=== PATIENT | male | born 1995 | race Asian ===

== ENCOUNTER 2020-06-10 07:20 | Outpatient (REF) | payer BC, SELFPAY ==
[2020-06-10 08:16] LABS: COVID-19 Test Negative (Negative)
== END 2020-06-10 07:21 | disposition home or self-care (01) ==
LOC: HO.LAB 07:20
PROVIDERS: Visit Provider Internal Medicine
DX: Z20.828 Contact with and (suspected) exposure to other viral communicable diseases (principal)
CPT/HCPCS: 87635; C9803

== ENCOUNTER 2023-08-30 13:46 | Inpatient (IN) | payer OTHER, SELFPAY ==
[2023-08-30] VITALS (8 sets, daily range): BP systolic 112–122; BP diastolic 57–74; PULSE 80–130; RESP 15–36; TEMP 36.6–37; O2SAT 98–100; BMI 28.5
--- NOTE | ~2023-08-30 | CT_ITS ---
EXAMINATION: CT ABDOMEN AND PELVIS without and WITH CONTRAST-GI bleed study CLINICAL INFORMATION: Acute GI bleed and melena COMPARISON: None TECHNIQUE: Multidetector volumetric imaging was performed from the superior aspect of the liver through the pubic symphysis both before as well as after intravenous contrast. A total of 85 mL of Omnipaque 350 was utilized for the study. 2 sets of post contrast imaging were performed, one during the arterial phase and one after a 2 minute delay to look for delayed extravasation. Sagittal and coronal reformatted images were obtained on the technologist's workstation. This CT examination was performed using dose optimization techniques as appropriate, variously including the following: *Automated exposure control *Adjustment of mA and/or kV according to patient size (this includes techniques or standardized protocols for targeted exams where dose is matched to indication/reason for exam; i.e. extremities or head) *Use of iterative reconstruction technique DLP: 910 mGy-cm FINDINGS: LUNG BASES: The visualized lung bases are unremarkable. LIVER, GALLBLADDER, AND BILIARY TREE: The liver is enlarged measuring 17.8 cm in greatest cephalocaudad dimension but is otherwise normal in shape and attenuation. No focal hepatic lesion or biliary ductal dilatation is present. The gallbladder is unremarkable with no evidence of radiopaque gallstones, gallbladder wall thickening, or obvious pericholecystic inflammatory changes. PANCREAS: Unremarkable. SPLEEN: Unremarkable. ADRENAL GLANDS: Unremarkable. KIDNEYS AND URETERS: The kidneys are normal in size, shape, and attenuation. No hydronephrosis, hydroureter, or calculi seen. No perinephric stranding. BLADDER: Unremarkable. GASTROINTESTINAL TRACT: The small and large bowel are unremarkable. The appendix is unremarkable. ABDOMINAL WALL: No significant hernia is appreciated. LYMPH NODES: Normal. VASCULAR: Unremarkable. PELVIC VISCERA: Unremarkable. OSSEOUS STRUCTURES: Unremarkable. CT/CT gi bleed abd pel wo/w IVcon IMPRESSION: 1. A cause for the patient's acute GI bleed has not been found. 2. Incidental note made of mild hepatomegaly. Fleischner guidelines were followed.
--- NOTE | 2023-08-30 13:49 | ECG_ITS ---
Test Reason : CHEST PAIN Blood Pressure : / mmHG Vent. Rate : 117 BPM Atrial Rate : 117 BPM P-R Int : 142 ms QRS Dur : 080 ms QT Int : 312 ms P-R-T Axes : 055 075 040 degrees QTc Int : 435 ms Sinus tachycardia Otherwise normal ECG No previous ECGs available Referred By: Generic ED Physician Electronically Signed By:SRINATH GALVEZ MD
--- NOTE | 2023-08-30 14:22 | ED_ITS ---
HPI - Chest Pain General Chief Complaint: GI Bleed Stated Complaint: Chest pain/SOB/Black stool Time Seen by Provider: 08/30/23 16:50 Source: patient Mode of arrival: ambulatory History of Present Illness HPI narrative: 28-year-old male without personal history of NSAID/aspirin use, alcohol use 2 weeks ago, no family history of GI cancers, presents for 2-3 days melena that is painless and then this morning has had several episodes with feeling nauseous, lightheaded as well as short of breath. Related Data Allergies Allergy/AdvReac Type Severity Reaction Status Date / Time cefaclor [From Ceclor] Allergy Unknown Verified 08/30/23 14:22 Review of Systems 2 Review of Systems: Pertinent positives and negatives as stated in HPI PMFSH Past Medical History Source: nursing notes reviewed Social History Social History Smoked in Last 30 Days: No Use of substances other than those prescribed or required for medical reasons: No Advance Directives: No Advance Directives Information Provided: No Physical Exam 2 Vital Signs: Vital Signs: Last Vital Signs Temp 98.6 F 08/30/23 17:50 Pulse 100 08/30/23 17:50 Resp 36 H 08/30/23 17:50 BP 117/72 08/30/23 17:50 Pulse Ox 100 08/30/23 17:50 O2 Del Method Room Air 08/30/23 17:50 BMI result Body Mass Index 28.5 VITAL SIGNS: Reviewed. GENERAL: Well developed, well nourished, in no acute distress. HEAD: Normocephalic/atraumatic EYES: PERRLA, EOMI EARS: Ext canals without abnormality NOSE: Nares patent bilateral OROPHARYNX: no oral lesions noted, posterior pharynx clear NECK: Supple, no adenopathy LUNGS: Normal breath sounds. No adventitious sounds or accessory muscle use. SpO2<100> CARDIOVASCULAR: Regular rate and rhythm without noted murmurs ABDOMEN: Soft, non-tender, non-distended with bowel sounds. ANORECTAL: [Schedule Manager-Tiana] no skin tags, good rectal tone, dark stool noted on finger MUSCULOSKELETAL: No tenderness, deformities, or effusions noted on gross inspection. EXTREMITIES: No cyanosis, clubbing or edema. SKIN: Inspection of the skin reveals no rashes, pale mucosa NEUROLOGIC: Alert and oriented x 4. Strength and sensation to light touch were grossly intact x 4. Course Course Course Narrative: RME: 28 year-old M w/no sig PMHx presenting to the ED c/o SOB & black stool x3 days, with palpitations this morning & upper abdominal pain. Admits to feeling lightheaded & some chest pain. Admits to drinking ETOH, denies NSAID tachycardic 120 in triage, pale EKG, Labs, Viral testing, UA, Occult stool ordered Full HPI, ROS and PE to be performed by primary ED provider. Medications Administered Discontinued Medications Generic Name Dose Route Start Last Admin Trade Name Freq PRN Reason Stop Dose Admin Sodium Chloride 1,000 mls @ 999 mls/hr 08/30/23 17:00 08/30/23 19:03 Ns IV 08/30/23 18:00 Infused .Q1H1M GUNJAN Infusion Iohexol 85 ml 08/30/23 17:33 08/30/23 17:33 Iohexol 350 Mg/Ml 100 Ml Infus..Btl IV 08/30/23 17:34 85 ml ONCE ONE Administration Pantoprazole Sodium 80 mg 08/30/23 17:00 08/30/23 17:14 Pantoprazole Sodium 40 Mg/10 Ml Vial IVPUSH 08/30/23 17:01 80 mg ONCE ONE Administration Medical Decision Making Medical Decision Making [facility] Narrative: 28-year-old male with history and clinical presentation, DDX: Upper GI bleed, bleeding ulcer, no hematemesis but obvious melena, patient is symptomatic. INTERVENTION: IV access, cardiac monitoring, 80 mg Protonix, IV fluids, type and screen, CT for GI bleed I reviewed all investigations and hematologic indices are negative for leukocytosis or left shift, there is no thrombocytopenia but there is a noted normocytic anemia without comparison labs but given patient's symptoms in recent melena can only presume that the anemia is secondary to the recent bouts of melena that he continues to have into today. Coagulation studies are within normal limits. Chemistries disease do not demonstrate an JULIA/electrolyte/liver enzyme derangements. I sensitivity troponin undetectable. Urinalysis negative for UTI and hematuria. Hemoccult is positive. Viral testing negative for influenza/RSV/COVID. CT scan does not demonstrate any acute extravasation. On re-evaluation patient states that he is feeling somewhat better. 1911: I discussed case with inpatient hospitalist who accepts admission. 1925: I consulted with Dr. Koch. Differential Diagnosis Differential Diagnoses: The differential diagnosis associated with the presentation includes Please see the discussion above Admission/Observation Consideration of admission/observation: Escalation of care including admission/observation considered Please see the discussion above Consult Healthcare Provider Management of the patient was discussed with: Hospitalist and [employer]nament[employer]er Please see the discussion above Lab Data MDM Lab Attestation statement: I reviewed the patient's lab results. Please see the discussion above 08/30/23 15:33 08/30/23 15:33 Labs: Lab Results 08/30/23 08/30/23 08/30/23 Range/Units 15:33 17:05 17:10 WBC 10.7 (4.8-10.8) X10*3/uL RBC 4.52 L D (4.60-5.80) X10*6/uL Hgb 12.7 L (14.0-18.0) g/dl Hct 38.2 L (42.0-52.0) % MCV 84.5 (80.0-98.0) fL MCH 28.1 (27.0-33.0) pg MCHC 33.2 (31.0-36.0) g/dl RDW 12.8 (11.0-16.0) % Plt Count 390 (160-400) X10*3/uL MPV 9.7 (9.4-12.4) fL Immature Gran % (Auto) 0.8 H (0.0-0.4) % Neut % (Auto) 71.1 (45-73) % Lymph % (Auto) 21.1 (20-40) % [place] % (Auto) 6.1 (2-11) % Eos % (Auto) 0.4 (0-4) % Baso % (Auto) 0.5 (0-2) % Lymph # (Auto) 2.3 (1.2-4.9) X10*3/uL [place] # (Auto) 0.7 (0.1-1.2) X10*3/uL Eos # (Auto) 0.0 (0.0-0.4) X10*3/uL Baso # (Auto) 0.1 (0.0-0.2) X10*3/uL Abs Immat Gran (auto) 0.09 H (0.00-0.03) X10*3/uL Absolute Neuts (auto) 7.6 (2.0-8.3) x10*3/uL Absolute Nucleated RBC 0.000 (0.0-0.012) X10*3/uL Nucleated RBC % (auto) 0.0 (0.0-0.2) /100WBC PT 12.0 (11.1-13.3) SEC INR 1.0 (0.9-1.1) Sodium 136 (135-145) mmol/L Potassium 4.5 (3.3-5.1) mmol/L Chloride 104 (96-108) mmol/L Carbon Dioxide 26 (22-29) mmol/L Anion Gap 11 L (12-20) BUN 49 H (9-16) mg/dL Creatinine 0.99 (0.5-1.4) mg/dL Estim Creat Clear Calc 113.2 Estimated GFR > 60 Random Glucose 99 (60-115) mg/dL Calcium 8.8 D (8.4-10.2) mg/dL Magnesium 2.0 (1.6-2.6) mg/dL Total Bilirubin 0.5 (0.0-1.0) mg/dL Direct Bilirubin 0.2 (0.0-0.5) mg/dL AST 21 (5-37) U/L ALT 15 (0-40) U/L Alkaline Phosphatase 60 (39-117) U/L Troponin I High Sens < 2.7 (<3.5-35.0) ng/L Total Protein 6.7 (6.5-8.0) g/dL Albumin 3.8 (3.5-5.0) g/dL Lipase 34 (8-78) U/L Urine Color Yellow Urine Appearance Clear Urine pH 5.5 (5.0-9.0) Ur Specific [place] 1.025 (1.005-1.025) Urine Protein Negative (Neg-Trace) mg/dL Urine Glucose (UA) Negative (Negative) mg/dL Urine Ketones Negative (Negative) mg/dL Urine Blood Negative (Negative) Urine Nitrite Negative (Negative) Ur Leukocyte Esterase Negative (Negative) Stool Occult Blood POSITIVE (NEGATIVE) Influenza Type A (PCR) NEGATIVE (Negative) Influenza Type B (PCR) NEGATIVE (Negative) RSV RNA Qual (PCR) NEGATIVE (Negative) SARS-CoV-2 RNA (RT-PCR) NEGATIVE (Negative) Blood Type B Positive Antibody Screen NEGATIVE Independent Interpretation I performed an independent interpretation of an: EKG Interpretation: Sinus tachycardia, HR-117, no STEMI, IA/QRS/QTC is within normal limits. Radiology Impression Discussion of test interpretation with radiology: I have reviewed the radiologist's reading. Radiologist Impression: Please see the discussion above Critical Care Time Critical Care Time Critical Care Time: Yes Total Critical Care Time: 60 Attestation: I personally attest to this time spent taking care of the patient. Discharge Plan Discharge Clinical Impression: Upper gastrointestinal hemorrhage, ABLA (acute blood loss anemia) Patient Disposition: Admitted As Inpatient
[2023-08-30 15:37] LABS: MANUAL DIFF FLAG NO
[2023-08-30 15:39] LABS: Basophils Absolute Auto 0.1 X10*3/uL (0.0-0.2); Basophils Percent Auto 0.5 % (0-2); Eosinophils Percent Auto 0.4 % (0-4); Hematocrit 38.2 % (42.0-52.0); Hemoglobin 12.7 g/dl (14.0-18.0); Imm Gran Abs Auto 0.09 X10*3/uL (0.00-0.03); Imm Gran Pct Auto 0.8 % (0.0-0.4); Lymphocytes Absolute Auto 2.3 X10*3/uL (1.2-4.9); Lymphocytes Percent Auto 21.1 % (20-40); Mean Corpuscular HGB Conc 33.2 g/dl (31.0-36.0); Mean Corpuscular Hemoglobin 28.1 pg (27.0-33.0); Mean Corpuscular Volume 84.5 fL (80.0-98.0); Mean Platelet Volume 9.7 fL (9.4-12.4); Monocytes Absolute Auto 0.7 X10*3/uL (0.1-1.2); Monocytes Percent Auto 6.1 % (2-11); Neutrophils Absolute Auto 7.6 x10*3/uL (2.0-8.3); Neutrophils Percent Auto 71.1 % (45-73); Platelet Count 390 X10*3/uL (160-400); Red Blood Count 4.52 X10*6/uL (4.60-5.80); Red Cell Distribution Width 12.8 % (11.0-16.0); White Blood Count 10.7 X10*3/uL (4.8-10.8)
[2023-08-30 15:52] LABS: Alanine Aminotransferase 15 U/L (0-40); Albumin Level 3.8 g/dL (3.5-5.0); Alkaline Phosphatase 60 U/L (39-117); Anion Gap 11 (12-20); Aspartate Amino Transferase 21 U/L (5-37); Bilirubin Direct 0.2 mg/dL (0.0-0.5); Bilirubin Total 0.5 mg/dL (0.0-1.0); Blood Urea Nitrogen 49 mg/dL (9-16); Calcium 8.8 mg/dL (8.4-10.2); Carbon Dioxide 26 mmol/L (22-29); Chloride 104 mmol/L (96-108); Creatinine Clr Calc Pharmacy 113.2; Estimated Glomerular Filt Rate > 60; Glucose Random 99 mg/dL (60-115); Lipase 34 U/L (8-78); Potassium 4.5 mmol/L (3.3-5.1); Sodium 136 mmol/L (135-145); Total Protein 6.7 g/dL (6.5-8.0)
[2023-08-30 16:02] LABS: Troponin-I High Sensitivity < 2.7 ng/L (<3.5-35.0)
[2023-08-30 16:15] LABS: Influenza A PCR NEGATIVE (Negative); Influenza B PCR NEGATIVE (Negative); Resp Syncy Virus RNA Qual PCR NEGATIVE (Negative); SARS COV2 PCR INHOUSE NEGATIVE (Negative)
[2023-08-30] MEDS: 0.9 % Sodium Chloride 1,000 ML 999 ML IV (17:10)
[2023-08-30] MEDS: Pantoprazole Sodium 40 MG/10 ML VIAL 80 MG IVPUSH (17:14)
[2023-08-30 17:19] LABS: OBS Int Ctl Valid YES; OBS1 POSITIVE (NEGATIVE)
[2023-08-30 17:20] LABS: Appearance Urine Clear; Color Urine Yellow; Glucose Urine UA Negative (Negative); Leukocyte Esterase Urine Negative (Negative); Nitrite Urine Negative (Negative); PH 5.5 (5.0-9.0); Specific Gravity - Urine 1.025 (1.005-1.025); Urine Blood Negative (Negative); Urine Ketones Negative (Negative); Urine Protein Negative (Neg-Trace)
--- NOTE | 2023-08-30 17:23 | PC.NURSE ---
IV placed in the patients right lateral AC #20, patient placed on tele monitor NS, patient medicated per MAR. patient remains alert and oriented x 3
[2023-08-30] MEDS: iohexoL 350 MG/ML 100 ML INFUS..BTL 85 ML IV (17:33)
--- NOTE | 2023-08-30 19:29 | P.HPHOSP_ITS ---
History of Present Illness Date of Service: 08/30/23 Chief Complaint: Uriel A 28-year-old male with no significant past medical history presents with melena. He reports experiencing episodes of black stools for the past 3 days, with symptoms worsening today accompanied by abdominal discomfort, dizziness, shortness of breath, and nausea. He denies using ASA, NSAIDs, steroids, or recent alcohol consumption, with his last drink being 2 weeks ago. His initial hematocrit is 38, repat 4 hours later 33. He was slightly tachycardic, but has improved since then. No family history of GI issues such as crohn's , IBS or colon malignancies . Review of Systems 2 Review of Systems: Gen: no fever Resp: + sob, no cough CV: no chest, no BRINK, no leg edema GI: melana, abd pain, nausea Neuro: No confusion Yes all other systems are reviewed and are negative PMFSH Pertinent family history: No family history of GI issues Social History Patient Tobacco Use Status: Never used Tobacco Smoked in Last 30 Days: No Use of substances other than those prescribed or required for medical reasons: No Advance Directives: No Advance Directives Information Provided: No Nutrition Risks: No Nutritional Risk Meds Allergies Allergy/AdvReac Type Severity Reaction Status Date / Time cefaclor [From [facility]] Allergy Unknown Verified 08/30/23 14:22 Home Medications Medication Instructions Recorded Confirmed Last Taken Type loratadine 5 mg-pseudoephedrine ER 1 tab PO Q12H PRN Allergy Symptoms 08/31/23 08/31/23 Unknown History 120 mg tablet,extended release,12hr (Claritin-D 12 Hour) Physical Exam 2 Vital Signs and Narrative: Vital Signs: Last Vital Signs Temp 98.6 F 08/30/23 17:50 Pulse 100 08/30/23 17:50 Resp 36 H 08/30/23 17:50 BP 117/72 08/30/23 17:50 Pulse Ox 100 08/30/23 17:50 O2 Del Method Room Air 08/30/23 17:50 BMI result Body Mass Index 28.5 Constitutional: Alert, in no distress, overweight. Mental Status: Oriented to person, place and time. Eyes: Pupils are equal, round and reactive to light. Ear, Nose and Throat: Oropharynx clear, mucous membranes moist. Respiratory: Clear to auscultation. No wheezing, rales or rhonchi. Cardiovascular: S1 S2 regular. No murmurs, rubs or gallops. Gastrointestinal: Abdomen soft, non-tender, non-distended. Normal bowel sounds.?rectal exam deffered Neurologic: Cranial nerves II-XII grossly intact. No focal neurological deficits. Moves all extremities spontaneously.? Skin: No rashes or lesions.? Musculoskeletal: No cyanosis or clubbing. Psychiatric: Normal mood and affect? Results Labs 08/31/23 04:29 08/30/23 15:33 Labs: Laboratory Results - last 24 hr 08/30/23 08/30/23 08/30/23 15:33 17:05 17:10 MCV 84.5 MCH 28.1 MCHC 33.2 RDW 12.8 Plt Count 390 MPV 9.7 Immature Gran % (Auto) 0.8 H Neut % (Auto) 71.1 Lymph % (Auto) 21.1 [place] % (Auto) 6.1 Eos % (Auto) 0.4 Baso % (Auto) 0.5 Lymph # (Auto) 2.3 [place] # (Auto) 0.7 Eos # (Auto) 0.0 Baso # (Auto) 0.1 Abs Immat Gran (auto) 0.09 H Absolute Neuts (auto) 7.6 Absolute Nucleated RBC 0.000 Nucleated RBC % (auto) 0.0 PT 12.0 INR 1.0 Anion Gap 11 L Estim Creat Clear Calc 113.2 Estimated GFR > 60 Random Glucose 99 Calcium 8.8 D Magnesium 2.0 Total Bilirubin 0.5 Direct Bilirubin 0.2 AST 21 ALT 15 Alkaline Phosphatase 60 Troponin I High Sens < 2.7 Total Protein 6.7 Albumin 3.8 Lipase 34 Urine Color Yellow Urine Appearance Clear Urine pH 5.5 Ur Specific [place] 1.025 Urine Protein Negative Urine Glucose (UA) Negative Urine Ketones Negative Urine Blood Negative Urine Nitrite Negative Ur Leukocyte Esterase Negative Stool Occult Blood POSITIVE Influenza Type A (PCR) NEGATIVE Influenza Type B (PCR) NEGATIVE RSV RNA Qual (PCR) NEGATIVE SARS-CoV-2 RNA (RT-PCR) NEGATIVE Blood Type B Positive Antibody Screen NEGATIVE Imaging Radiologist's Impressions: Impressions Abdomen/Pelvis CT 08/30/23 17:57 IMPRESSION: 1. A cause for the patient's acute GI bleed has not been found. 2. Incidental note made of mild hepatomegaly. Fleischner guidelines were followed. Assessment and Plan (1) ABLA (acute blood loss anemia): Status: Acute (2) Upper gastrointestinal hemorrhage: Status: Acute Plan A 28-year-old male with no significant past medical history presents with melena (GIB), and acute blood loss anemia ( ABLA), inital hematocrit 38 repeat 4 hours 33 Plan: GIB, ABLA -Serial H/H -IVF -IV PPI -Dr. Koch aware -NPO for possible endocopy tomoorw DVT prophylaxis: early ambulation Full code admit for at least 2 midnights for management of symptomatic ABLA and need for for further testing Quality Stroke Does the patient have a stroke diagnosis?: No VTE Prior VTE?: No VTE Risk Level:: Medical - low VTE Device Contraindication: Treatment Not Indicated VTE Drug Contraindication: Treatment Not Indicated
--- NOTE | 2023-08-30 19:42 | PM.EVENT ---
Event Note Date of Service: 08/30/23 Event Note: GI consult received, case reviewed with ER MD. EGD tentatively planned for 08/31 pending clinical course and formal evaluation. Time Spent With Patient Time: Total time managing care of this patient today ____ minutes.
[2023-08-30 19:49] LABS: Hematocrit 33.7 % (42.0-52.0); Hemoglobin 11.3 g/dl (14.0-18.0)
--- NOTE | 2023-08-30 20:09 | PC.NURSE ---
28 yr presents with melena x 3 days with abd pain , SOB, nausea. Denies ASA or recent alcohol use ( last use 2 weeks ago). neg smoker. Positive occult blood NPO for possible endoscopy tomorrow. IVF, serial H/H
--- NOTE | 2023-08-30 20:28 | PC.NURSE ---
[facility] TO [place] - [phone]
[2023-08-30] MEDS: Dextrose 5 % and 0.45 % NaCl 1,000 ML 100 ML IVCONT (20:38)
--- NOTE | 2023-08-30 23:42 | MHC.EDTECH ---
This tech took over care of patient at 2300,hourly rounds and vitals completed.patient is resting comfortably at this time and call rubio in reach
[2023-08-31] VITALS (7 sets, daily range): BP systolic 100–117; BP diastolic 49–72; PULSE 77–101; RESP 16; TEMP 36.3–36.8; O2SAT 97–100
--- NOTE | 2023-08-31 01:10 | MHC.EDTECH ---
Patient ambulated to the bathroom with a steady gait.
[2023-08-31 01:11] LABS: Hematocrit 32.6 % (42.0-52.0)
--- NOTE | 2023-08-31 01:50 | MHC.EDTECH ---
Hourly rounds completed,patient is resting comfortable at this time and call rubio in reach
--- NOTE | 2023-08-31 03:42 | MHC.EDTECH ---
Hourly rounds and vitals completed,patient is resting comfortably at this time and call rubio within reach.
[2023-08-31 04:56] LABS: MANUAL DIFF FLAG NO
[2023-08-31 04:57] LABS: Basophils Absolute Auto 0.1 X10*3/uL (0.0-0.2); Basophils Percent Auto 0.9 % (0-2); Eosinophils Absolute Auto 0.1 X10*3/uL (0.0-0.4); Eosinophils Percent Auto 0.9 % (0-4); Hematocrit 32.3 % (42.0-52.0); Hemoglobin 10.7 g/dl (14.0-18.0); Imm Gran Abs Auto 0.05 X10*3/uL (0.00-0.03); Imm Gran Pct Auto 0.6 % (0.0-0.4); Lymphocytes Absolute Auto 3.4 X10*3/uL (1.2-4.9); Lymphocytes Percent Auto 37.8 % (20-40); Mean Corpuscular HGB Conc 33.1 g/dl (31.0-36.0); Mean Corpuscular Hemoglobin 28.3 pg (27.0-33.0); Mean Corpuscular Volume 85.4 fL (80.0-98.0); Mean Platelet Volume 9.7 fL (9.4-12.4); Monocytes Absolute Auto 0.6 X10*3/uL (0.1-1.2); Neutrophils Absolute Auto 4.8 x10*3/uL (2.0-8.3); Neutrophils Percent Auto 52.8 % (45-73); Platelet Count 329 X10*3/uL (160-400); Red Blood Count 3.78 X10*6/uL (4.60-5.80); Red Cell Distribution Width 12.6 % (11.0-16.0)
[2023-08-31] MEDS: Pantoprazole Sodium 40 MG/10 ML VIAL IVPUSH (05:42)
--- NOTE | 2023-08-31 07:13 | PC.NURSE ---
assumed care of pt at 0700. pt a&o x4, pleasant, calm, and cooperative. pt denies pain lenka, resting quietly on stretcher in no apparent distress. rr even/unlabored. NPO for possible endoscopy today. pt has no comlaints lenka. call rubio within reach. plan of care ongoing.
--- NOTE | 2023-08-31 07:36 | PHA.MEDREC ---
Pharmacy Consult ? Medication Reconciliation Pharmacy has completed the medication reconciliation. Spoke with patient in the ED
--- NOTE | 2023-08-31 08:17 | HO.PM.IMPN ---
Subjective Subjective Date of Service: 08/31/23 Interval History: f/u on ABLA, GIB no further melana, H/H is stable Physical Exam Vital Signs: Vital Signs: Last Vital Signs Temp 98.1 F 08/31/23 05:42 Pulse 77 08/31/23 05:42 Resp 16 08/31/23 05:42 BP 103/62 08/31/23 05:42 Pulse Ox 97 08/31/23 05:42 O2 Del Method Room Air 08/31/23 05:42 BMI result Body Mass Index 28.5 General: AO X 3, no acute distress Resp: CTA bilateral CVS: S1,S2,RRR GI: +BS, NT, no distention Skin: No rash Neuro: motor grossly intact Psych: appropriate affect Objective Data Active Medications Acetaminophen (Acetaminophen 325 Mg Tablet) 650 mg PO Q6H PRN PRN Reason: Pain, Mild (Pain Scale 1-3) Dextrose/Sodium Chloride (D51/2ns) 1,000 mls @ 100 mls/hr IVCONT .Q10H [facility] [place] Last Admin: 08/30/23 20:38 Dose: 100 mls/hr Documented By: YE Magnesium Hydroxide (Milk Of Magnesia 30 Ml Oral.Susp) 30 ml PO DAILY PRN PRN Reason: Constipation Melatonin (Melatonin 3 Mg Tablet) 6 mg PO BEDTIME PRN PRN Reason: Insomnia Ondansetron HCl (Ondansetron Hcl 4 Mg/2 Ml Vial) 4 mg IVPUSH Q8H PRN PRN Reason: Nausea and Vomiting Pantoprazole Sodium (Pantoprazole Sodium 40 Mg/10 Ml Vial) 40 mg IVPUSH BID@0630,1630 [facility] [place] Last Admin: 08/31/23 05:42 Dose: 40 mg Documented By: YE Sodium Chloride (0.9 % Sodium Chloride Flush 3 Ml Syringe) 3 ml IVFLUSH QSHIFT [facility] [place] Last Admin: 08/31/23 08:13 Dose: Not Given Documented By: YOUNG Non-Admin Reason: IV Running Labs 08/31/23 04:29 08/30/23 15:33 Labs: Laboratory Results - last 24 hr 08/30/23 08/30/23 08/30/23 15:33 17:05 17:10 MCV 84.5 MCH 28.1 MCHC 33.2 RDW 12.8 Plt Count 390 MPV 9.7 Immature Gran % (Auto) 0.8 H Neut % (Auto) 71.1 Lymph % (Auto) 21.1 [place] % (Auto) 6.1 Eos % (Auto) 0.4 Baso % (Auto) 0.5 Lymph # (Auto) 2.3 [place] # (Auto) 0.7 Eos # (Auto) 0.0 Baso # (Auto) 0.1 Abs Immat Gran (auto) 0.09 H Absolute Neuts (auto) 7.6 Absolute Nucleated RBC 0.000 Nucleated RBC % (auto) 0.0 PT 12.0 INR 1.0 Anion Gap 11 L Estim Creat Clear Calc 113.2 Estimated GFR > 60 Random Glucose 99 Calcium 8.8 D Magnesium 2.0 Total Bilirubin 0.5 Direct Bilirubin 0.2 AST 21 ALT 15 Alkaline Phosphatase 60 Troponin I High Sens < 2.7 Total Protein 6.7 Albumin 3.8 Lipase 34 Urine Color Yellow Urine Appearance Clear Urine pH 5.5 Ur Specific [place] 1.025 Urine Protein Negative Urine Glucose (UA) Negative Urine Ketones Negative Urine Blood Negative Urine Nitrite Negative Ur Leukocyte Esterase Negative Stool Occult Blood POSITIVE Influenza Type A (PCR) NEGATIVE Influenza Type B (PCR) NEGATIVE RSV RNA Qual (PCR) NEGATIVE SARS-CoV-2 RNA (RT-PCR) NEGATIVE Blood Type B Positive Antibody Screen NEGATIVE 08/31/23 04:29 MCV 85.4 MCH 28.3 MCHC 33.1 RDW 12.6 Plt Count 329 MPV 9.7 Immature Gran % (Auto) 0.6 H Neut % (Auto) 52.8 Lymph % (Auto) 37.8 [place] % (Auto) 7.0 Eos % (Auto) 0.9 Baso % (Auto) 0.9 Lymph # (Auto) 3.4 [place] # (Auto) 0.6 Eos # (Auto) 0.1 Baso # (Auto) 0.1 Abs Immat Gran (auto) 0.05 H Absolute Neuts (auto) 4.8 Absolute Nucleated RBC 0.000 Nucleated RBC % (auto) 0.0 PT INR Anion Gap Estim Creat Clear Calc Estimated GFR Random Glucose Calcium Magnesium Total Bilirubin Direct Bilirubin AST ALT Alkaline Phosphatase Troponin I High Sens Total Protein Albumin Lipase Urine Color Urine Appearance Urine pH Ur Specific [place] Urine Protein Urine Glucose (UA) Urine Ketones Urine Blood Urine Nitrite Ur Leukocyte Esterase Stool Occult Blood Influenza Type A (PCR) Influenza Type B (PCR) RSV RNA Qual (PCR) SARS-CoV-2 RNA (RT-PCR) Blood Type Antibody Screen Assessment and Plan (1) ABLA (acute blood loss anemia): Status: Acute (2) Upper gastrointestinal hemorrhage: Status: Acute Plan A 28-year-old male with no significant past medical history presents with melena (GIB), and acute blood loss anemia ( ABLA), inital hematocrit 38 repeat 4 hours 33 Plan: GIB, ABLA..Dx gastritis, peptic ulcer, H/H stabe overnight, no further melana -To remainNPO -GI eval today for possible endoscopy -IV PPI, IVF -Dr. Koch aware DVT prophylaxis: early ambulation Full code admit for at least 2 midnights for management of symptomatic ABLA and need for for further testing Quality Stroke Does the patient have a stroke diagnosis?: No VTE Prior VTE?: No VTE Risk Level:: Medical - low VTE Device Contraindication: Treatment Not Indicated VTE Drug Contraindication: Treatment Not Indicated
--- NOTE | 2023-08-31 08:45 | MHC.SHP ---
Pre-Procedural Eval Section A - 24 Hr Update-Section A only Date of Service: 08/31/23 The patient is an INPATIENT: Yes Changes since office visit: No Cold of Flu in the past 2 weeks, No New Medical Problems, No Changes in Medication and No Patient answered all questions The patient has been examined within 24 hours of the surgical procedure. The History & Physical has been completed within 30 days and I have reviewed it.: Yes Section B - Complete if H&P > 30 days Chief Complaint: GIB, ABLA Allergies: Allergies Allergy/AdvReac Type Severity Reaction Status Date / Time cefaclor [From Ceclor] Allergy Unknown Verified 08/30/23 14:22 Plan I have reviewed the history and physical and performed a pertinent physical examination on my patient. No changes have occurred unless specified. Time Spent With Patient Time: Total time managing care of this patient today ____ minutes.
--- NOTE | 2023-08-31 08:47 | HO.ANESPROP2 ---
PMF Active Problems Active Problems: All Active Problems (Updated 08/30/23 @ 19:27 by Kayla Arcos MD) ABLA (acute blood loss anemia) (Acute) Upper gastrointestinal hemorrhage (Acute) Family History Family history of problems with anesthesia: No Surgical History History of Problems with Anesthesia: No Social History Social History Patient Tobacco Use Status: Never used Tobacco Smoked in Last 30 Days: No Use of substances other than those prescribed or required for medical reasons: No Advance Directives: No Advance Directives Information Provided: No Nutrition Risks: No Nutritional Risk Meds Allergies Allergy/AdvReac Type Severity Reaction Status Date / Time [facility] [[facility] Allergy Unknown Verified 08/30/23 14:22 Active Medications: Current Medications Acetaminophen (Acetaminophen 325 Mg Tablet) 650 mg PO Q6H PRN PRN Reason: Pain, Mild (Pain Scale 1-3) Dextrose/Sodium Chloride (D51/2ns) 1,000 mls @ 100 mls/hr IVCONT .Q10H [facility] Last Admin: 08/30/23 20:38 Dose: 100 mls/hr Magnesium Hydroxide (Milk Of Magnesia 30 Ml Oral.Susp) 30 ml PO DAILY PRN PRN Reason: Constipation Melatonin (Melatonin 3 Mg Tablet) 6 mg PO BEDTIME PRN PRN Reason: Insomnia Ondansetron HCl (Ondansetron Hcl 4 Mg/2 Ml Vial) 4 mg IVPUSH Q8H PRN PRN Reason: Nausea and Vomiting Pantoprazole Sodium (Pantoprazole Sodium 40 Mg/10 Ml Vial) 40 mg IVPUSH BID@0630,1630 [facility] Last Admin: 08/31/23 05:42 Dose: 40 mg Sodium Chloride (0.9 % Sodium Chloride Flush 3 Ml Syringe) 3 ml IVFLUSH QSHIFT [facility] Last Admin: 08/31/23 08:13 Dose: Not Given Home Medications Medication Instructions Recorded Confirmed Last Taken Type loratadine 5 mg-pseudoephedrine ER 1 tab PO Q12H PRN Allergy Symptoms 08/31/23 08/31/23 Unknown History 120 mg tablet,extended release,12hr (Claritin-D 12 Hour) Exam Height,Weight and Vital Signs: Height 5 ft 7 in Weight 82.6 kg Last Vital Signs Temp 98.1 F 08/31/23 05:42 Pulse 77 08/31/23 05:42 Resp 16 08/31/23 05:42 BP 103/62 08/31/23 05:42 Pulse Ox 97 08/31/23 05:42 O2 Del Method Room Air 08/31/23 05:42 Pertinent Lab Results Pertinent Lab Results: Laboratory Tests 08/30/23 08/30/23 08/30/23 15:33 17:05 17:10 WBC 10.7 RBC 4.52 L D Hgb 12.7 L Hct 38.2 L MCV 84.5 MCH 28.1 MCHC 33.2 RDW 12.8 Plt Count 390 MPV 9.7 Immature Gran % (Auto) 0.8 H Neut % (Auto) 71.1 Lymph % (Auto) 21.1 [place] % (Auto) 6.1 Eos % (Auto) 0.4 Baso % (Auto) 0.5 Lymph # (Auto) 2.3 [place] # (Auto) 0.7 Eos # (Auto) 0.0 Baso # (Auto) 0.1 Abs Immat Gran (auto) 0.09 H Absolute Neuts (auto) 7.6 Absolute Nucleated RBC 0.000 Nucleated RBC % (auto) 0.0 PT 12.0 INR 1.0 Sodium 136 Potassium 4.5 Chloride 104 Carbon Dioxide 26 Anion Gap 11 L BUN 49 H Creatinine 0.99 Estim Creat Clear Calc 113.2 Estimated GFR > 60 Random Glucose 99 Calcium 8.8 D Magnesium 2.0 Total Bilirubin 0.5 Direct Bilirubin 0.2 AST 21 ALT 15 Alkaline Phosphatase 60 Troponin I High Sens < 2.7 Total Protein 6.7 Albumin 3.8 Lipase 34 Urine Color Yellow Urine Appearance Clear Urine pH 5.5 Ur Specific [place] 1.025 Urine Protein Negative Urine Glucose (UA) Negative Urine Ketones Negative Urine Blood Negative Urine Nitrite Negative Ur Leukocyte Esterase Negative Stool Occult Blood POSITIVE Influenza Type A (PCR) NEGATIVE Influenza Type B (PCR) NEGATIVE RSV RNA Qual (PCR) NEGATIVE SARS-CoV-2 RNA (RT-PCR) NEGATIVE Blood Type B Positive Antibody Screen NEGATIVE 08/30/23 08/31/23 08/31/23 19:44 00:42 04:29 WBC 9.0 RBC 3.78 L Hgb 11.3 L 11.0 L 10.7 L Hct 33.7 L 32.6 L 32.3 L MCV 85.4 MCH 28.3 MCHC 33.1 RDW 12.6 Plt Count 329 MPV 9.7 Immature Gran % (Auto) 0.6 H Neut % (Auto) 52.8 Lymph % (Auto) 37.8 [place] % (Auto) 7.0 Eos % (Auto) 0.9 Baso % (Auto) 0.9 Lymph # (Auto) 3.4 [place] # (Auto) 0.6 Eos # (Auto) 0.1 Baso # (Auto) 0.1 Abs Immat Gran (auto) 0.05 H Absolute Neuts (auto) 4.8 Absolute Nucleated RBC 0.000 Nucleated RBC % (auto) 0.0 PT INR Sodium Potassium Chloride Carbon Dioxide Anion Gap BUN Creatinine Estim Creat Clear Calc Estimated GFR Random Glucose Calcium Magnesium Total Bilirubin Direct Bilirubin AST ALT Alkaline Phosphatase Troponin I High Sens Total Protein Albumin Lipase Urine Color Urine Appearance Urine pH Ur Specific [place] Urine Protein Urine Glucose (UA) Urine Ketones Urine Blood Urine Nitrite Ur Leukocyte Esterase Stool Occult Blood Influenza Type A (PCR) Influenza Type B (PCR) RSV RNA Qual (PCR) SARS-CoV-2 RNA (RT-PCR) Blood Type Antibody Screen Airway Mallampati Class: II TM Dist: >3cm Neck ROM: Full Assessment and Plan Assessment Anesthesia Assessment: Anesthesia Plan Discussed and Chart Reviewed Final Anesthetic Review Family History of Problems with Anesthesia: No History of Problems with Anesthesia: No NPO: Yes ASA Class: II and Emergency Final Preanesthetic Review: No Changes in Pt Med Stat, Meds/Allgs Chart Reviewed, Consent Obtained/Reviewed and Anes Risks/Benef Reviewed Patient Risk: Intermediate Procedure Risk: Low Anesthetic Plan Anesthetic Plan: TIVA Disposition: Standard PACU
--- NOTE | 2023-08-31 08:47 | PC.NURSE ---
pt brought to [facility] for endoscopy.
--- NOTE | 2023-08-31 09:11 | MHC.CM.PN ---
CM ATTEMPTED TO MEET WITH PT HOWEVER PT NOT YET ON UNIT, CM WILL REVISIT AFTER PT TRANSFERRED TO .
--- NOTE | 2023-08-31 09:11 | PC.NURSE ---
inpatient report completed. pt in [facility] for endoscopy. will be brought to inpatient room once complete.
--- NOTE | 2023-08-31 09:26 | PM.EVENT ---
Event Note Date of Service: 08/31/23 Event Note: EGD dictated mild gastritis in body antral biopsies taken rec: oral ppi d/c home f/u bx results Time Spent With Patient Time: Total time managing care of this patient today ____ minutes.
--- NOTE | 2023-08-31 09:48 | PM.DS ---
DS: Providers Provider Date of Service: 08/31/23 Date of admission: 08/30/23 19:55 Primary care physician: CRISTÓBAL Harris Consults: 08/30/23 19:53 Consult to Gastroenterology Routine Consulting Provider: Raj Koch Reason for consultation: gib, abla Has provider been notified: No DS: Diagnosis Discharge Diagnosis (1) ABLA (acute blood loss anemia): Status: Acute (2) Upper gastrointestinal hemorrhage: Status: Acute DS: Summary Hospital Course Hospital Course: Chief Complaint: Uriel A 28-year-old male with no significant past medical history presents with melena. He reports experiencing episodes of black stools for the past 3 days, with symptoms worsening today accompanied by abdominal discomfort, dizziness, shortness of breath, and nausea. He denies using ASA, NSAIDs, steroids, or recent alcohol consumption, with his last drink being 2 weeks ago. His initial hematocrit is 38, repat 4 hours later 33. He was slightly tachycardic, but has improved since then. No family history of GI issues such as crohn's , IBS or colon malignancies Hospital course: Patient was admitted and treated with IV Protonix, serial H/H show hematocrit going from 38 to 33 and then 32 and had no further episodes of melana. Other symptoms described have resolve. He had EGD the next morning by Dr. Koch and noted to have gastritis, no active bleed. Prilosec 20 mg daily is recommended along with avoidance of NSAIDs and alcohol Time Attestation Discharge coordination time: Greater than 30 minutes Quality: Safe Use of Opioids Does Pt have an Active Cancer Diagnosis on the Problem List?: No Quality: Stroke Does the patient have a stroke diagnosis?: No Physical Exam Vital Signs: Vital Signs: Last Vital Signs Temp 97.8 F 08/31/23 09:44 Pulse 91 08/31/23 09:44 Resp 16 08/31/23 09:44 BP 100/49 L 08/31/23 09:44 Pulse Ox 99 08/31/23 09:44 O2 Del Method Room Air 08/31/23 09:44 BMI result Body Mass Index 28.5 DS: Data Data Completed and Pending Pending studies at discharge: Pending at discharge 08/31/23 09:20 Surgical [PTH] Routine Labs on day of discharge: Laboratory Results - last 24 hr 08/30/23 08/30/2324 15:33 17:05 17:10 WBC 10.7 RBC 4.52 L D Hgb 12.7 L Hct 38.2 L MCV 84.5 MCH 28.1 MCHC 33.2 RDW 12.8 Plt Count 390 MPV 9.7 Immature Gran % (Auto) 0.8 H Neut % (Auto) 71.1 Lymph % (Auto) 21.1 [place] % (Auto) 6.1 Eos % (Auto) 0.4 Baso % (Auto) 0.5 Lymph # (Auto) 2.3 [place] # (Auto) 0.7 Eos # (Auto) 0.0 Baso # (Auto) 0.1 Abs Immat Gran (auto) 0.09 H Absolute Neuts (auto) 7.6 Absolute Nucleated RBC 0.000 Nucleated RBC % (auto) 0.0 PT 12.0 INR 1.0 Sodium 136 Potassium 4.5 Chloride 104 Carbon Dioxide 26 Anion Gap 11 L BUN 49 H Creatinine 0.99 Estim Creat Clear Calc 113.2 Estimated GFR > 60 Random Glucose 99 Calcium 8.8 D Magnesium 2.0 Total Bilirubin 0.5 Direct Bilirubin 0.2 AST 21 ALT 15 Alkaline Phosphatase 60 Troponin I High Sens < 2.7 Total Protein 6.7 Albumin 3.8 Lipase 34 Urine Color Yellow Urine Appearance Clear Urine pH 5.5 Ur Specific [place] 1.025 Urine Protein Negative Urine Glucose (UA) Negative Urine Ketones Negative Urine Blood Negative Urine Nitrite Negative Ur Leukocyte Esterase Negative Stool Occult Blood POSITIVE Influenza Type A (PCR) NEGATIVE Influenza Type B (PCR) NEGATIVE RSV RNA Qual (PCR) NEGATIVE SARS-CoV-2 RNA (RT-PCR) NEGATIVE Blood Type B Positive Antibody Screen NEGATIVE 08/30/23 08/31/23 08/31/23 19:44 00:42 04:29 WBC 9.0 RBC 3.78 L Hgb 11.3 L 11.0 L 10.7 L Hct 33.7 L 32.6 L 32.3 L MCV 85.4 MCH 28.3 MCHC 33.1 RDW 12.6 Plt Count 329 MPV 9.7 Immature Gran % (Auto) 0.6 H Neut % (Auto) 52.8 Lymph % (Auto) 37.8 [place] % (Auto) 7.0 Eos % (Auto) 0.9 Baso % (Auto) 0.9 Lymph # (Auto) 3.4 [place] # (Auto) 0.6 Eos # (Auto) 0.1 Baso # (Auto) 0.1 Abs Immat Gran (auto) 0.05 H Absolute Neuts (auto) 4.8 Absolute Nucleated RBC 0.000 Nucleated RBC % (auto) 0.0 PT INR Sodium Potassium Chloride Carbon Dioxide Anion Gap BUN Creatinine Estim Creat Clear Calc Estimated GFR Random Glucose Calcium Magnesium Total Bilirubin Direct Bilirubin AST ALT Alkaline Phosphatase Troponin I High Sens Total Protein Albumin Lipase Urine Color Urine Appearance Urine pH Ur Specific [place] Urine Protein Urine Glucose (UA) Urine Ketones Urine Blood Urine Nitrite Ur Leukocyte Esterase Stool Occult Blood Influenza Type A (PCR) Influenza Type B (PCR) RSV RNA Qual (PCR) SARS-CoV-2 RNA (RT-PCR) Blood Type Antibody Screen Discharge Plan Discharge Anticipated Discharge Date/Time: 08/31/23 09:44 Patient Disposition: Home, Self-Care Discharge Diagnosis: Gastritis, upper GIB, ABLA Referrals: Renay Fernandez PA [Primary Care Provider] - 1 Week Discharge Medications: New omeprazole magnesium [Prilosec OTC] 20 mg tablet,delayed release (DR/EC) 20 mg PO DAILY Qty: 90 0RF Continued Claritin-D 12 Hour 5-120 mg Tablet Extended Release 12 Hr 1 tab PO Q12H PRN (Reason: Allergy Symptoms) Diet: Advance to usual diet Activity on Discharge: As tolerated Stand Alone Forms: Patient Portal Discharge page Care Plan Goals: recovery from gib, anemia, and gastritis Health Concerns: gastritis, anemia, gi bleeding Plan of Treatment: take prilosec as recommended, avoid aspirin, NSAID (modrin, advil, naproxen and others, check with pharmacist), avoid alcohol and follow up with your doctor in a week Assessment: see above
--- NOTE | 2023-08-31 10:02 | CONS_ITS ---
DATE OF SERVICE: 08/31/2023 REFERRING PHYSICIAN: Devendra Irwin MD REASON FOR CONSULTATION: GI bleeding. HISTORY OF PRESENT ILLNESS: The patient is a pleasant, healthy 28-year-old man who was admitted to the hospital after presenting to the emergency room with 3 days of black stools. He denies any prior history of ulcer disease. He does not take large amounts of NSAIDs. He does drink occasional alcohol and there is no drug use. He had some associated abdominal discomfort, dizziness and nausea and was given IV fluids in the emergency department. Hematocrit on admission was 38 and dropped to 33 after IV fluid administration. PAST MEDICAL HISTORY: He denies other medical or surgical illnesses. CURRENT MEDICATIONS: Current medication list is reviewed in the chart. ALLERGIES: CEFACLOR. FAMILY HISTORY: Negative for upper GI tract malignancy. SOCIAL HISTORY: There is no substance abuse. REVIEW OF SYSTEMS: SKIN: No pruritus. HEENT: Negative. CARDIOPULMONARY: No shortness of breath or chest pain. GASTROINTESTINAL: As above. GENITOURINARY: Negative. NEUROPSYCHIATRIC: Negative. PHYSICAL EXAMINATION: GENERAL: Shows a pleasant male, lying comfortably in bed. VITAL SIGNS: Stable. SKIN: Anicteric. HEENT: Shows no scleral icterus. NECK: Without lymphadenopathy or thyromegaly. LUNGS: Clear. HEART: Shows a regular rate and rhythm. S1, S2. No murmur. ABDOMEN: Soft without focal masses or tenderness. Bowel sounds are present. No organomegaly is noted. EXTREMITIES: Without edema. Laboratory data and CT imaging are reviewed. IMPRESSION: Upper gastrointestinal bleeding. The differential diagnosis for this includes peptic ulcer disease, erosive esophagitis, arteriovenous malformations, and malignancy. I have discussed endoscopy with him including risks and benefits of the procedure. He understands these and agrees to proceed. This will be done today. Pending these results, he may be able to be discharged later. MD SHELBY Pelaez/ROSI / [id number]
--- NOTE | 2023-08-31 10:43 | OP_ITS ---
DATE OF SERVICE: 08/31/2023 SURGEON: Raj Koch MD INDICATIONS: Upper GI bleeding. PREOPERATIVE DIAGNOSIS: POSTOPERATIVE DIAGNOSIS: PROCEDURE PERFORMED: ESTIMATED BLOOD LOSS: COMPLICATIONS: ANESTHESIA: Medications; monitored anesthesia care. ASSISTANTS: SPECIMENS: PROCEDURES PERFORMED: Upper endoscopy with biopsy. DESCRIPTION OF PROCEDURE: A history and physical performed. The risks and benefits of the procedure were explained to the patient. Informed consent was obtained. The patient was placed in the left lateral decubitus position. The Olympus video gastroscope was introduced into the esophagus, stomach, and duodenum. Examination was performed. The scope was removed. He tolerated the procedure well and was returned to recovery in stable condition. FINDINGS: Esophagus: The esophagus was normal. Stomach: The stomach showed mild gastritis involving the body and fundus. Antral biopsies were obtained to evaluate for H pylori. Duodenum: The bulb and 2nd portion were normal. IMPRESSION: Gastritis. RECOMMENDATIONS: 1. Follow up the biopsy results. 2. Begin oral proton pump inhibitor. MD SHELBY Pelaez/MODL / [id number]
--- NOTE | 2023-08-31 11:05 | MHC.CM.PN ---
CM ATTEMPTED TO MEET W/PT AGAIN HOWEVER PT IN BATHROOM, CM TO REVISIT.
--- NOTE | 2023-08-31 11:30 | MHC.CM.PN ---
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 PT REQUESTING HOSPITALIST CHECK IN W/HIM PRIOR TO DC AND MESSAGE SENT TO HOSPITALIST VIA [facility]. PT COVID VACC X2, PCP ON FILE VERIFIED [facility], PT EDUCATED ON AND DECLINES TO COMPLETE A HCP. PT MEDICALLY CLEARED FOR DC HOME TODAY SELF CARE AND PT WILL SELF TRANSPORT VEHICLE IS [facility].
== END 2023-08-31 13:52 | disposition home or self-care (01) | DRG 241 ==
LOC: HO.ED 19:27 → HO.EDOVER 20:03 → HO.IMC 08-31 07:39
PROVIDERS: Internal Medicine Gastroenterology; Physician Assistant; Admitting Provider Internal Medicine; Emergency Provider Student in an Organized Health Care Education/Training Program; PCP Physician Assistant; Visit Provider Internal Medicine
PROC: 0DB78ZX Excision of Stomach, Pylorus, Via Natural or Artificial Opening Endoscopic, Diagnostic (ICD-10-PCS; CPT 43239; principal; 2023-08-31 15:50)
DX: K29.71 Gastritis, unspecified, with bleeding (principal); D62 Acute posthemorrhagic anemia; Z20.822 Contact with and (suspected) exposure to COVID-19; Z79.899 Other long term (current) drug therapy
CPT/HCPCS: 43239; 0241U; 36415; 74178; 80048; 80076; 81003; 82272; 83690; 83735; 84484; 85014; 85018; 85025; 85610; 86850; 86900; 86901; 88305; 88313; 88342; 93005; 99222; 99285; C9113; J2704; Q9967

== ENCOUNTER → 2023-08-30 13:49 | Outpatient (BNV) | payer OTHER, SELFPAY | PROVIDERS: Admitting Provider Internal Medicine; Emergency Provider Student in an Organized Health Care Education/Training Program; PCP Physician Assistant; Visit Provider Internal Medicine Cardiovascular Disease | DX: R07.9 Chest pain, unspecified (principal) | CPT/HCPCS: 93010 ==

== ENCOUNTER → 2023-08-30 19:55 | Outpatient (BNV) | payer OTHER, SELFPAY | PROVIDERS: Admitting Provider Internal Medicine; Emergency Provider Student in an Organized Health Care Education/Training Program; PCP Physician Assistant; Visit Provider Internal Medicine | DX: D62 Acute posthemorrhagic anemia (principal); K92.2 Gastrointestinal hemorrhage, unspecified | CPT/HCPCS: 99223; 99239 ==

== ENCOUNTER 2023-09-02 12:00 | Inpatient (IN) | payer OTHER, SELFPAY ==
[2023-09-02] VITALS (17 sets, daily range): BP systolic 92–134; BP diastolic 41–68; PULSE 95–111; RESP 12–22; TEMP 36.6–37.9; O2SAT 98–100; BMI 29.9
--- NOTE | 2023-09-02 12:10 | ECG_ITS ---
Test Reason : CHEST TIGHTNESS Blood Pressure : / mmHG Vent. Rate : 103 BPM Atrial Rate : 103 BPM P-R Int : 148 ms QRS Dur : 086 ms QT Int : 330 ms P-R-T Axes : 045 045 036 degrees QTc Int : 432 ms Sinus tachycardia Otherwise normal ECG When compared with ECG of 30-AUG-2023 13:56, No significant change was found Referred By: Generic ED Physician Electronically Signed By:SRINATH GALVEZ MD
--- NOTE | 2023-09-02 12:22 | ED_ITS ---
HPI - General Adult General Chief complaint: GI Bleed Stated complaint: ABD/CHEST PAIN,DARK BM,WEAK,?GI BLEED PER EMS Time Seen by Provider: 09/02/23 12:14 Source: patient and EMS Mode of arrival: EMS Limitations: no limitations History of Present Illness HPI narrative: 28 year old male with no significant pmhx presents to the ED today for evaluation of nausea, dizziness, chest tightness and shortness of breath beginning this morning. Admits to waking up this morning feeling nauseous when standing up to use the bathroom. Admits to passing a dark bowel movement and staggering back to his bed. He attempted to get out of bed again, felt dizzy and short of breath causing him to fall back onto his bed. He states that since being discharged from our facility 2 days ago, he continues to have dark stools. He admits to chest tightness this morning which has since resolved. Denies chest pain. Denies BRBPR. Denies vomiting, abdominal pain, or hematochezia. Denies history of anemia. Denies iron supplementation. Denies recent Pepto- Bismol use. Denies excessive ETOH consumption or NSAID use. Patient was evaluated in our ED 3 days ago for same. His stool was positive for blood and he was admitted to the hospital for further workup and treatment with IV protonix. CT with and without contrast was performed without any obvious etiology for acute bleed. He had EGD the following morning conducted by GI (Dr. Koch) and was noted to have gastritis without identifiable bleed. He was discharged home on Prilosec 20 mg daily with education on avoidance of NSAIDs and alcohol. Patient states he has been taking this as prescribed. Related Data Home Medications Medication Instructions Recorded Confirmed loratadine 5 mg-pseudoephedrine ER 1 tab PO DAILY PRN Allergy Symptoms 08/31/23 09/02/23 120 mg tablet,extended release,12hr (Claritin-D 12 Hour) Previous Rx's Medication Instructions Recorded omeprazole magnesium 20 mg 20 mg PO DAILY #90 tabs 08/31/23 tablet,delayed release (Prilosec OTC) Allergies Allergy/AdvReac Type Severity Reaction Status Date / Time [facility] Allergy Unknown Verified 08/30/23 14:22 Review of Systems 2 Review of Systems: Constitutional: No fever, chills, fatigue, night sweats, weight changes ENT/Mouth: No ear pain, hearing loss, nasal congestion, sinus pain, rhinorrhea, sore throat Eyes: No eye pain, swelling, redness, vision changes, discharge Cardio: No chest pain, palpitations, BRINK, orthopnea, peripheral edema Pulm: +SOB, No cough, sputum, wheezing, dyspnea, hemoptysis GI: +nausea, No vomiting, hematemesis, abdominal pain, diarrhea, constipation, hematochezia, +melena : No irregular bleeding, dysuria, frequency, urgency, hesitancy, hematuria, flank pain, urinary flow changes, urinary incontinence or retention MSK: No back pain, neck pain, joint pain, myalgias Skin: No lesions, rashes Neuro: No weakness, numbness, paresthesias, LOC, +dizziness, No headache Psych: No anxiety/panic, depression, SI/HI, AH/VH All other systems reviewed and are negative. [facility] Past Medical History Attestation statement: The following information was validated with the patient. Source: old records reviewed and nursing notes reviewed Social History Social History Housing: Apartment Do you presently have visiting nurse or other home services: No Patient Tobacco Use Status: Never used Tobacco Advance Directives: No service: No Physical Exam ED Vital Signs: Vital Signs - 24 hr 09/02/23 12:22 09/02/23 13:39 09/02/23 14:20 Temperature 98.1 F 98.7 F Pulse Rate 111 H 105 H 98 Respiratory Rate 14 12 14 Blood Pressure 105/61 92/52 L 95/41 L Pulse Oximetry 100 100 Oxygen Delivery Method Room Air Room Air BMI result Body Mass Index 29.9 Tachycardic, BP soft Const Other: + pale in appearance General: cooperative, no acute distress, alert and awake Orientation/consciousness: patient oriented x3 Limitations: no limitations HENMT Head: Yes normal to inspection Ears: hearing grossly normal bilaterally General nose exam: Normal external nose present, No nasal discharge present and no epistaxis Eyes General: appearance normal, both eyes and all related structures Pupils: Equal, round and reactive pupils present Neck Neck: Yes normal visual inspection and Yes no lymphadenopathy Resp Effort & Inspection: normal respiratory effort and able to speak in complete sentences Auscultation: clear to auscultation bilaterally Cardio Other: 2+ radial pulses Rate: regular rate and tachycardic Rhythm: regular rhythm GI Other: + Rectal exam performed with [facility] Tech present in room to attending radiologist. Normal rectal sphincter tone. No external masses or lesions. Stool is soft and black in appearance. OBS positive. Inspection: Yes normal to inspection Palpation (GI): Soft to palpation, nontender, no guarding and No hepatosplenomegaly present General: Yes no CVA tenderness Back/Spine/Pelvis Back: no CVA tenderness Skin General skin exam: no rashes or lesions noted Neuro General: patient oriented x3, gait normal and moves all extremities Cranial nerves: Yes Equal, round and reactive pupils present Extrem General: Yes normal to inspection, Yes full ROM and Yes no calf tenderness Course Course Course Narrative: 1322- No leukocytosis or left shift. Chloride 112. BUN 40. Cr 0.82. Calcium 7.6. Troponin undetectable. EKG showing sinus tachycardia, otherwise normal.? > Received critical H&H of 6.1/18 which has dropped significantly from H&H of 10.7/32.3 2 days ago. OBS positive for blood. Patient will require blood transfusion. Signed consent obtained from patient > 2L PRBC ordered. > Patient will require admission for acute GI bleed with anemia requiring transfusion > request sent to hospitalist. > ALTON Grimm informs me that upon patient standing to walk to the restroom, his BP dropped to 95/52 and patient endorsed feeling short of breath. Will place order for IVF while we await transfusion. 1338-- Hospitalist, Dr. Bear has accepted admission and will place admission orders. Medications Administered Generic Name Dose Route Start Last Admin Trade Name Freq PRN Reason Stop Dose Admin Pantoprazole Sodium 40 mg 09/02/23 14:25 09/02/23 15:51 Pantoprazole Sodium 40 Mg/10 Ml Vial IVPUSH 40 mg BID@0630,1630 GUNJAN Administration Sodium Chloride 3 ml 09/02/23 16:00 09/02/23 15:51 0.9 % Sodium Chloride Flush 3 Ml Syringe IVFLUSH Not Given QSHIFT GUNJAN Discontinued Medications Generic Name Dose Route Start Last Admin Trade Name Freq PRN Reason Stop Dose Admin Sodium Chloride 100 mls @ 100 mls/hr 09/02/23 13:26 09/02/23 15:52 Ns IV 09/02/23 14:25 Infused ONCE ONE Infusion Sodium Chloride 1,000 mls @ 999 mls/hr 09/02/23 13:45 09/02/23 15:52 Ns IV 09/02/23 14:45 Infused .Q1H1M GUNJAN Infusion Sodium Chloride 1,000 mls @ 999 mls/hr 09/02/23 13:45 09/02/23 15:52 Ns IV 09/02/23 14:45 Infused .Q1H1M GUNJAN Infusion Medical Decision Making Medical Decision Making [facility] Narrative: 28 year old male with no significant pmhx presents to the ED today for evaluation of nausea, dizziness, chest tightness and shortness of breath beginning this morning. Patient noted to be tachycardic to 111. BP soft at 105/61. Vitals otherwise WNL. On exam, skin is pale in appearance. Tremulous. Lungs CTA bilaterally. no calf tenderness. no active bleeding. OBS obtained with Radha field operations technician in room. Stool soft with black appearance. Clinical concern for acute GI bleed, electrolyte abnormality, anemia, gastritis, gastroenteritis. Lower suspcision for ACS, arrhythmia, PE/DVT. Plan for labs, OBS, EKG, troponin and re-evaluation. Differential Diagnosis Differential Diagnoses: The differential diagnosis associated with the presentation includes As above Admission/Observation Consideration of admission/observation: Escalation of care including admission/observation considered This patient with acute GI bleed with anemia requiring blood transfusion will be admitted. Consult Healthcare Provider Management of the patient was discussed with: Hospitalist (Dr. Bear) Lab Data [facility] Lab Attestation statement: I reviewed the patient's lab results. As above 09/02/23 12:50 09/02/23 12:50 Labs: Lab Results 09/02/23 09/02/23 Range/Units 12:50 13:20 WBC 10.8 (4.8-10.8) X10*3/uL RBC 2.11 L D (4.60-5.80) X10*6/uL Hgb 6.1 L* D (14.0-18.0) g/dl Hct 18.3 L* D (42.0-52.0) % MCV 86.7 (80.0-98.0) fL MCH 28.9 (27.0-33.0) pg MCHC 33.3 (31.0-36.0) g/dl RDW 13.0 (11.0-16.0) % Plt Count 257 (160-400) X10*3/uL MPV 10.3 (9.4-12.4) fL Immature Gran % (Auto) 0.7 H (0.0-0.4) % Neut % (Auto) 71.6 (45-73) % Lymph % (Auto) 21.6 (20-40) % [place] % (Auto) 5.0 (2-11) % Eos % (Auto) 0.5 (0-4) % Baso % (Auto) 0.6 (0-2) % Lymph # (Auto) 2.3 (1.2-4.9) X10*3/uL [place] # (Auto) 0.5 (0.1-1.2) X10*3/uL Eos # (Auto) 0.1 (0.0-0.4) X10*3/uL Baso # (Auto) 0.1 (0.0-0.2) X10*3/uL Abs Immat Gran (auto) 0.08 H (0.00-0.03) X10*3/uL Absolute Neuts (auto) 7.8 (2.0-8.3) x10*3/uL Absolute Nucleated RBC 0.000 (0.0-0.012) X10*3/uL Nucleated RBC % (auto) 0.0 (0.0-0.2) /100WBC PT 13.3 (11.1-13.3) SEC INR 1.1 (0.9-1.1) Sodium 141 (135-145) mmol/L Potassium 4.1 (3.3-5.1) mmol/L Chloride 112 H (96-108) mmol/L Carbon Dioxide 23 (22-29) mmol/L Anion Gap 10 L (12-20) BUN 40 H (9-16) mg/dL Creatinine 0.82 (0.5-1.4) mg/dL Estim Creat Clear Calc 135.1 Estimated GFR > 60 Random Glucose 110 (60-115) mg/dL Calcium 7.6 L D (8.4-10.2) mg/dL Iron 127 (45-160) mcg/dL TIBC 171 L (228-428) mcg/dL % Saturation 74 H (15-50) % Unsat Iron Binding 44 ug/dL Total Bilirubin 0.3 (0.0-1.0) mg/dL Direct Bilirubin 0.1 (0.0-0.5) mg/dL AST 20 (5-37) U/L ALT 13 (0-40) U/L Alkaline Phosphatase 33 L (39-117) U/L Troponin I High Sens < 2.7 (<3.5-35.0) ng/L Total Protein 4.4 L (6.5-8.0) g/dL Albumin 2.7 L (3.5-5.0) g/dL Stool Occult Blood POSITIVE (NEGATIVE) Blood Type B Positive Antibody Screen NEGATIVE Crossmatch See Detail Independent Interpretation I performed an independent interpretation of an: EKG Interpretation: EKG showing sinus tachycardia with a rate of 103 beats per minute, QT 330, QTC 432, no acute ischemic changes or ST elevations. Independent Historian Clinical information obtained from an independent historian. History obtained from or confirmed by: EMS External Record Review External record reviewed: Inpatient record, Office record, Outpatient record, Prior outpatient labs, Prior outpatient radiology, Primary care record and Outside ED record Chronic Conditions Patient?s care impacted by: Other Social Determinants Patient?s care significantly limited by Social Determinants of Health including: Other Social Determinant of Health Critical Care Time Critical Care Time Critical Care Time: Yes Total Critical Care Time: 60 Attestation: Critical care time in the amount of 60 minutes has been provided to the patient in terms of direct patient care, frequent reevaluation, consultation with hospitalist, review and interpretation of medical data and results, and management of potentially life-threatening conditions. This is all outside of any medical procedures. Discharge Plan Discharge Clinical Impression: Acute gastrointestinal bleeding, Acute blood loss anemia Patient Disposition: Admitted As Inpatient
[2023-09-02 13:01] LABS: MANUAL DIFF FLAG NO
[2023-09-02 13:06] LABS: Basophils Absolute Auto 0.1 X10*3/uL (0.0-0.2); Basophils Percent Auto 0.6 % (0-2); Eosinophils Absolute Auto 0.1 X10*3/uL (0.0-0.4); Eosinophils Percent Auto 0.5 % (0-4); Imm Gran Abs Auto 0.08 X10*3/uL (0.00-0.03); Imm Gran Pct Auto 0.7 % (0.0-0.4); Lymphocytes Absolute Auto 2.3 X10*3/uL (1.2-4.9); Lymphocytes Percent Auto 21.6 % (20-40); Mean Corpuscular HGB Conc 33.3 g/dl (31.0-36.0); Mean Corpuscular Hemoglobin 28.9 pg (27.0-33.0); Mean Corpuscular Volume 86.7 fL (80.0-98.0); Mean Platelet Volume 10.3 fL (9.4-12.4); Monocytes Absolute Auto 0.5 X10*3/uL (0.1-1.2); Neutrophils Absolute Auto 7.8 x10*3/uL (2.0-8.3); Neutrophils Percent Auto 71.6 % (45-73); Platelet Count 257 X10*3/uL (160-400); Red Blood Count 2.11 X10*6/uL (4.60-5.80); White Blood Count 10.8 X10*3/uL (4.8-10.8)
[2023-09-02 13:12] LABS: Hemoglobin 6.1 g/dl (14.0-18.0)
[2023-09-02 13:13] LABS: Hematocrit 18.3 % (42.0-52.0)
[2023-09-02 13:14] LABS: INTERNATIONAL NORM RATIO 1.1 (0.9-1.1); Prothrombin Time 13.3 SEC (11.1-13.3)
[2023-09-02 13:24] LABS: OBS Int Ctl Valid YES; OBS1 POSITIVE (NEGATIVE)
[2023-09-02 13:26] LABS: Alanine Aminotransferase 13 U/L (0-40); Albumin Level 2.7 g/dL (3.5-5.0); Alkaline Phosphatase 33 U/L (39-117); Anion Gap 10 (12-20); Aspartate Amino Transferase 20 U/L (5-37); Bilirubin Direct 0.1 mg/dL (0.0-0.5); Bilirubin Total 0.3 mg/dL (0.0-1.0); Blood Urea Nitrogen 40 mg/dL (9-16); Calcium 7.6 mg/dL (8.4-10.2); Carbon Dioxide 23 mmol/L (22-29); Chloride 112 mmol/L (96-108); Creatinine Clr Calc Pharmacy 135.1; Estimated Glomerular Filt Rate > 60; Glucose Random 110 mg/dL (60-115); Iron 127 mcg/dL (45-160); Percent Iron Saturation 74 % (15-50); Potassium 4.1 mmol/L (3.3-5.1); Sodium 141 mmol/L (135-145); Total Iron Binding Capacity 171 mcg/dL (228-428); Total Protein 4.4 g/dL (6.5-8.0); Unsaturated Iron Binding 44 ug/dL
[2023-09-02 13:34] LABS: Troponin-I High Sensitivity < 2.7 ng/L (<3.5-35.0)
--- NOTE | 2023-09-02 13:37 | PC.NURSE ---
called blood bank- lab still pending for t&s. lab states will call when blood is ready.
--- NOTE | 2023-09-02 13:40 | PC.NURSE ---
blake morel aware low bp 81/23, 89/50, hr up to 130 when stood at edge of bed. pt instructed not to get oob and to use urinal in bed for voiding due to dizziness when stood. maria teresa lozano aware pt c/o of muffled hearing when stood up. resolved on laying down
[2023-09-02] MEDS: 0.9 % Sodium Chloride 1,000 ML 999 ML IV ×2 (13:45→14:45)
--- NOTE | 2023-09-02 14:29 | PM.IMHP ---
History of Present Illness Date of Service: 09/02/23 Chief Complaint: melena, dizziness The patient is a 28 year old male who was admitted to [facility] from 08/30-08/31 for abdominal pain and underwent an upper EGD which revealed mild gastritis. He was discharged on oral PPI. He now returns 2 days after discharge with melena with associated signs of anemia including palpitations, dizziness, lightheadedness, fatigue. The patient endorses that since discharge, he was initially almost back to baseline. He was tolerating a diet, did not have abdominal pain and his stools were returning to their normal color. However, it appears over the next 24 hours, his symptoms began again. He reports on going melena. Denies bright red blood per rectum. Reports nausea but denies vomiting of any type. Reports vague abdominal discomfort. Patients H/H which was 10.7/32.3 on 08/31/23 has decreased to 6.1/18.3 today. Denies heavy EtOH or NSAID use. In the ED, patient with borderline BP. He has been given 2L IVF with plans to transfuse 2 units PRBCs. He will be given IV PPI and will be admitted for the treatment of suspected UGI. Review of Systems Review of Systems: Negative except HPI/interval history. [facility] Cognitive capacity: Denies Pertinent family history: Kidney transplant in mother Social History Housing: Apartment Do you presently have visiting nurse or other home services: No Patient Tobacco Use Status: Never used Tobacco Advance Directives: No service: No Meds Allergies Allergy/AdvReac Type Severity Reaction Status Date / Time cefaclor [From [facility]] Allergy Unknown Verified 08/30/23 14:22 Active Medications: Current Medications Sodium Chloride (Ns) 1,000 mls @ 999 mls/hr IV .Q1H1M GUNJAN Stop: 09/02/23 14:45 Sodium Chloride (Ns) 1,000 mls @ 999 mls/hr IV .Q1H1M [facility] Stop: 09/02/23 14:45 Pantoprazole Sodium (Pantoprazole Sodium 40 Mg/10 Ml Vial) 40 mg IVPUSH BID@0630,1630 [facility] Sodium Chloride (0.9 % Sodium Chloride Flush 3 Ml Syringe) 3 ml IVFLUSH QSHIFT [facility] Home Medications Medication Instructions Recorded Confirmed Last Taken Type loratadine 5 mg-pseudoephedrine ER 1 tab PO Q12H PRN Allergy Symptoms 08/31/23 08/31/23 Unknown History 120 mg tablet,extended release,12hr (Claritin-D 12 Hour) Physical Exam Vital Signs and Narrative: Vital Signs: Last Vital Signs Temp 98.7 F 09/02/23 14:20 Pulse 98 09/02/23 14:20 Resp 14 09/02/23 14:20 BP 95/41 L 09/02/23 14:20 Pulse Ox 100 09/02/23 13:39 O2 Del Method Room Air 09/02/23 13:39 BMI result Body Mass Index 29.9 Const: Other: Constitutional - Awake and Alert, No apparent distress, pale in appearance Eyes - PERRLA, EOMI Cardiovascular - S1S2, tachy in the low 100s Respiratory - Normal lung expansion, Normal respiratory effort, No respiratory distress, CTA bilaterally Gastrointestinal - NT / ND; +BS; No rebound or guarding - No CVA tenderness Extremities - no calf tenderness bilaterally, no swelling Musculoskeletal - Normal inspection, normal ROM Skin - Warm/Dry Neurological - Alert & oriented x3, No focal deficit Psychological - Appropriate affect Results Labs 09/02/23 12:50 09/02/23 12:50 Labs: Laboratory Results - last 24 hr 09/02/23 09/02/23 12:50 13:20 MCV 86.7 MCH 28.9 MCHC 33.3 RDW 13.0 Plt Count 257 MPV 10.3 Immature Gran % (Auto) 0.7 H Neut % (Auto) 71.6 Lymph % (Auto) 21.6 [place] % (Auto) 5.0 Eos % (Auto) 0.5 Baso % (Auto) 0.6 Lymph # (Auto) 2.3 [place] # (Auto) 0.5 Eos # (Auto) 0.1 Baso # (Auto) 0.1 Abs Immat Gran (auto) 0.08 H Absolute Neuts (auto) 7.8 Absolute Nucleated RBC 0.000 Nucleated RBC % (auto) 0.0 PT 13.3 INR 1.1 Anion Gap 10 L Estim Creat Clear Calc 135.1 Estimated GFR > 60 Random Glucose 110 Calcium 7.6 L D Iron 127 TIBC 171 L % Saturation 74 H Unsat Iron Binding 44 Total Bilirubin 0.3 Direct Bilirubin 0.1 AST 20 ALT 13 Alkaline Phosphatase 33 L Troponin I High Sens < 2.7 Total Protein 4.4 L Albumin 2.7 L Stool Occult Blood POSITIVE Blood Type B Positive Antibody Screen NEGATIVE Crossmatch See Detail Assessment and Plan (1) Acute gastrointestinal bleeding: Status: Acute (2) ABLA (acute blood loss anemia): Status: Acute Plan 28 yo who was recently admitted for UGI and underwent EGD which revealed mild gastritis. He now returns 2 days after discharge with symptomatic anemia and melena. He will be admitted for futher work up. 1. Acute GI bleed IV PPI NPO GI consult with Dr. Koch 2. Acute blood loss anemia due to #1 plan for 2 untis PRBCs 3. Hypotension due to #2 improve with volume resuscitation Patient with acute blood loss anemia without a known cause. He has recently had an upper GI bleed. Furthermore he has symptoms of anemia and is borderline hypotensive. Due to all these factors, I suspect that he will likely need 48 hours in the hospital and therefore, will be admitted as inpatient. Quality Stroke Does the patient have a stroke diagnosis?: No VTE Prior VTE?: No VTE Risk Level:: Medical - moderate - high VTE Device Contraindication: N/A - Device Ordered VTE Drug Contraindication: Treatment Not Indicated
--- NOTE | 2023-09-02 15:33 | PHA.MEDREC ---
Pharmacy Consult ? Medication Reconciliation Pharmacy has completed the medication reconciliation. Patient reports taking claritin and omeprazole. Jeannine Quick, JonathanD
[2023-09-02] MEDS: Pantoprazole Sodium 40 MG/10 ML VIAL IVPUSH (15:51)
--- NOTE | 2023-09-02 17:51 | PC.NURSE ---
on the phone w blood bank as 1st unit complete and inquiring about getting 2nd unit. on hold
--- NOTE | 2023-09-02 18:42 | PC.NURSE ---
per md coreas- lia to give ice chipos/swabs if hr <100 and sbp >100. notified md coreas hr 99-103, 107/42, and ok to have ice chips/swabs at this time
[2023-09-02 22:26] LABS: Hematocrit 22.6 % (42.0-52.0); Hemoglobin 7.6 g/dl (14.0-18.0)
[2023-09-03] VITALS (9 sets, daily range): BP systolic 106–133; BP diastolic 48–84; PULSE 84–99; RESP 16–20; TEMP 36.8–37.4; O2SAT 99–100
[2023-09-03] MEDS: Pantoprazole Sodium 40 MG/10 ML VIAL IVPUSH ×2 (05:42→16:22)
--- NOTE | 2023-09-03 07:34 | PM.EVENT ---
Event Note Date of Service: 09/03/23 Event Note: GI pt seen and examined consult to follow EGD planned for later today. Time Spent With Patient Time: Total time managing care of this patient today ____ minutes.
[2023-09-03] MEDS: 0.9 % Sodium Chloride Flush 3 ML SYRINGE IVFLUSH ×3 (08:18→20:47)
[2023-09-03 09:02] LABS: MANUAL DIFF FLAG NO
[2023-09-03 09:15] LABS: Basophils Absolute Auto 0.1 X10*3/uL (0.0-0.2); Basophils Percent Auto 0.7 % (0-2); Eosinophils Absolute Auto 0.1 X10*3/uL (0.0-0.4); Eosinophils Percent Auto 0.8 % (0-4); Hematocrit 22.3 % (42.0-52.0); Hemoglobin 7.5 g/dl (14.0-18.0); Imm Gran Abs Auto 0.05 X10*3/uL (0.00-0.03); Imm Gran Pct Auto 0.6 % (0.0-0.4); Lymphocytes Absolute Auto 2.6 X10*3/uL (1.2-4.9); Lymphocytes Percent Auto 30.6 % (20-40); Mean Corpuscular HGB Conc 33.6 g/dl (31.0-36.0); Mean Corpuscular Volume 86.1 fL (80.0-98.0); Mean Platelet Volume 10.1 fL (9.4-12.4); Monocytes Absolute Auto 0.5 X10*3/uL (0.1-1.2); Monocytes Percent Auto 6.1 % (2-11); Neutrophils Absolute Auto 5.1 x10*3/uL (2.0-8.3); Neutrophils Percent Auto 61.2 % (45-73); Platelet Count 224 X10*3/uL (160-400); Red Blood Count 2.59 X10*6/uL (4.60-5.80); White Blood Count 8.4 X10*3/uL (4.8-10.8)
[2023-09-03 09:25] LABS: Alanine Aminotransferase 13 U/L (0-40); Albumin Level 2.7 g/dL (3.5-5.0); Alkaline Phosphatase 35 U/L (39-117); Anion Gap 9 (12-20); Aspartate Amino Transferase 24 U/L (5-37); Bilirubin Total 0.6 mg/dL (0.0-1.0); Blood Urea Nitrogen 26 mg/dL (9-16); Calcium 7.8 mg/dL (8.4-10.2); Carbon Dioxide 24 mmol/L (22-29); Chloride 111 mmol/L (96-108); Creatinine Clr Calc Pharmacy 110.8; Estimated Glomerular Filt Rate > 60; Glucose Fasting 89 mg/dL (60-99); Potassium 3.8 mmol/L (3.3-5.1); Sodium 140 mmol/L (135-145); Total Protein 4.5 g/dL (6.5-8.0)
--- NOTE | 2023-09-03 09:44 | P.CONAN_ITS ---
HPI - Anesthesia Eval Consult details Narrative: for EGD, bec of UGI bleed. PMFSH Active Problems Active Problems: All Active Problems (Updated 09/02/23 @ 18:32 by CRISTÓBAL Franz) Acute blood loss anemia (Acute) Acute gastrointestinal bleeding (Acute) ABLA (acute blood loss anemia) (Acute) Upper gastrointestinal hemorrhage (Acute) Family History Family history of problems with anesthesia: No Surgical History Surgical History (Updated 09/03/23 @ 09:09 by Lavern Herrera) History of endoscopy History of Problems with Anesthesia: No Social History Social History Housing: Apartment Do you presently have visiting nurse or other home services: No Patient Tobacco Use Status: Never used Tobacco Use of substances other than those prescribed or required for medical reasons: Yes Substance Use Type: Caffiene Substance Use Frequency: Occasionally Currently Displaying Signs/Symptoms of Drug Intoxication Withdrawal: No Have you been hit, kicked, punched, or otherwise hurt by someone within the past year? If so, by whom?: No Do you feel safe in your current relationship?: No Is there a partner from a previous relationship who is making you feel unsafe now?: No Are you made to feel afraid or neglected: No Are you DNR?: No Advance Directives: No Advance Directives on File: No Do you have thoughts of harming others: None Do you have a plan to hurt others: No Plan Recently lost weight without trying: No Eating poorly because of decreased appetite: No Nutrition Risks: No Nutritional Risk service: No Meds Allergies Allergy/AdvReac Type Severity Reaction Status Date / Time cefaclor [From [facility]] Allergy Severe Rash Verified 09/03/23 09:31 Active Medications: Current Medications Acetaminophen (Acetaminophen 325 Mg Tablet) 650 mg PO Q4H PRN PRN Reason: Pain, Mild (Pain Scale 1-3) Pantoprazole Sodium (Pantoprazole Sodium 40 Mg/10 Ml Vial) 40 mg IVPUSH BID@0630,1630 [facility] Last Admin: 09/03/23 05:42 Dose: 40 mg Sodium Chloride (0.9 % Sodium Chloride Flush 3 Ml Syringe) 3 ml IVFLUSH QSHIFT [facility] Last Admin: 09/03/23 08:18 Dose: 3 ml Home Medications Medication Instructions Recorded Confirmed Last Taken Type loratadine 5 mg-pseudoephedrine ER 1 tab PO DAILY PRN Allergy Symptoms 08/31/23 09/03/23 Unknown History 120 mg tablet,extended release,12hr (Claritin-D 12 Hour) Exam Height,Weight and Vital Signs: Height 5 ft 6 in Weight 84 kg Last Vital Signs Temp 99.3 F 09/03/23 09:20 Pulse 95 09/03/23 09:20 Resp 16 09/03/23 09:20 BP 127/61 09/03/23 09:20 Pulse Ox 100 09/03/23 09:20 O2 Del Method Room Air 09/03/23 09:20 Pertinent Lab Results Pertinent Lab Results: Laboratory Tests 09/02/23 09/02/23 09/02/23 12:50 13:20 22:06 WBC 10.8 RBC 2.11 L D Hgb 6.1 L* D 7.6 L D Hct 18.3 L* D 22.6 L D MCV 86.7 MCH 28.9 MCHC 33.3 RDW 13.0 Plt Count 257 MPV 10.3 Immature Gran % (Auto) 0.7 H Neut % (Auto) 71.6 Lymph % (Auto) 21.6 [place] % (Auto) 5.0 Eos % (Auto) 0.5 Baso % (Auto) 0.6 Lymph # (Auto) 2.3 [place] # (Auto) 0.5 Eos # (Auto) 0.1 Baso # (Auto) 0.1 Abs Immat Gran (auto) 0.08 H Absolute Neuts (auto) 7.8 Absolute Nucleated RBC 0.000 Nucleated RBC % (auto) 0.0 PT 13.3 INR 1.1 Sodium 141 Potassium 4.1 Chloride 112 H Carbon Dioxide 23 Anion Gap 10 L BUN 40 H Creatinine 0.82 Estim Creat Clear Calc 135.1 Estimated GFR > 60 Random Glucose 110 Fasting Glucose Calcium 7.6 L D Iron 127 TIBC 171 L % Saturation 74 H Unsat Iron Binding 44 Total Bilirubin 0.3 Direct Bilirubin 0.1 AST 20 ALT 13 Alkaline Phosphatase 33 L Troponin I High Sens < 2.7 Total Protein 4.4 L Albumin 2.7 L Stool Occult Blood POSITIVE Blood Type B Positive Antibody Screen NEGATIVE Crossmatch See Detail 09/03/23 08:17 WBC 8.4 RBC 2.59 L D Hgb 7.5 L Hct 22.3 L MCV 86.1 MCH 29.0 MCHC 33.6 RDW 14.0 Plt Count 224 MPV 10.1 Immature Gran % (Auto) 0.6 H Neut % (Auto) 61.2 Lymph % (Auto) 30.6 [place] % (Auto) 6.1 Eos % (Auto) 0.8 Baso % (Auto) 0.7 Lymph # (Auto) 2.6 [place] # (Auto) 0.5 Eos # (Auto) 0.1 Baso # (Auto) 0.1 Abs Immat Gran (auto) 0.05 H Absolute Neuts (auto) 5.1 Absolute Nucleated RBC 0.000 Nucleated RBC % (auto) 0.0 PT INR Sodium 140 Potassium 3.8 Chloride 111 H Carbon Dioxide 24 Anion Gap 9 L BUN 26 H Creatinine 1.00 Estim Creat Clear Calc 110.8 Estimated GFR > 60 Random Glucose Fasting Glucose 89 Calcium 7.8 L Iron TIBC % Saturation Unsat Iron Binding Total Bilirubin 0.6 Direct Bilirubin AST 24 ALT 13 Alkaline Phosphatase 35 L Troponin I High Sens Total Protein 4.5 L Albumin 2.7 L Stool Occult Blood Blood Type Antibody Screen Crossmatch Airway Mallampati Class: II TM Dist: >3cm Neck ROM: Full Heart: ok Lungs: ok Assessment and Plan Assessment Anesthesia Assessment: Anesthesia Plan Discussed and Chart Reviewed Final Anesthetic Review Family History of Problems with Anesthesia: No History of Problems with Anesthesia: No NPO: Yes ASA Class: II Final Preanesthetic Review: No Changes in Pt Med Stat, Meds/Allgs Chart Reviewed, Consent Obtained/Reviewed and Anes Risks/Benef Reviewed Patient Risk: Intermediate Procedure Risk: Intermediate Anesthetic Plan Anesthetic Plan: Agree w/ Assess. and Plan and TIVA Disposition: Standard PACU
--- NOTE | 2023-09-03 10:21 | PM.OP ---
Brief Operative Note Date of Service: 09/03/23 Pre-op diagnosis: gi bleed Post-op diagnosis: same Procedure: EGD Surgeon: Raj Koch MD Anesthesia: MAC Was an Shipbuilding Draftsperson used for this Procedure?: No Estimated blood loss (mL): 2 Pathology: other Condition: stable Disposition: PACU
--- NOTE | 2023-09-03 10:23 | PM.EVENT ---
Event Note Date of Service: 09/03/23 Event Note: EGD dictated 10 mm gastric ulcer on lesser curvature, no bleeding treated with epi and gold probe Rec: clear liquids today iv ppi follow hct advance diet and d/c in am on bid ppi if stable my office will arrange for h pylori rx and repeat egd in 8-10 weeks Time Spent With Patient Time: Total time managing care of this patient today ____ minutes.
--- NOTE | 2023-09-03 10:34 | OP_ITS ---
DATE OF SERVICE: 09/03/2023 SURGEON: Raj Koch MD INDICATIONS: Upper GI bleeding. PREOPERATIVE DIAGNOSIS: POSTOPERATIVE DIAGNOSIS: PROCEDURE PERFORMED: Upper endoscopy with control of hemorrhage. ESTIMATED BLOOD LOSS: COMPLICATIONS: ANESTHESIA: Monitored anesthesia care. ASSISTANTS: SPECIMENS: DESCRIPTION OF PROCEDURE: A history and physical were performed. The risks and benefits of the procedure were explained to the patient, and informed consent was obtained. The patient was placed in the left lateral decubitus position. The Olympus video gastroscope was introduced into the esophagus, stomach, and duodenum. Examination was performed, and the scope was removed. He tolerated the procedure well and was taken to recovery in stable condition. FINDINGS: 1. Esophagus: The esophagus was normal. 2. Stomach: The stomach showed no blood. There was a single antral erosion measuring 1 x 3 mm in the body of the stomach. High up on the lesser curvature, approximately 5 or 6 cm below the EG junction, was an 8 mm gastric ulcer with no bleeding. There was a visible vessel at the inferior aspect of the ulcer. 3. Duodenum, the bulb and second portion were normal. Hemostatic therapy was performed. A total of 3 cc of epinephrine (1:10,000) was injected submucosally around the ulcer with good mucosal blanching. Next, the gold probe was used to cauterize the visible vessel with multiple applications. There was excellent hemostasis at the termination of the procedure without any active bleeding. IMPRESSION: Gastric ulcer. RECOMMENDATIONS: 1. Begin clear liquid diet. 2. Continue proton pump inhibitor. 3. Repeat endoscopy will be needed in approximately 8 to 10 weeks to document healing of the gastric ulcer. He will also need antibiotic therapy for his H. pylori infection. This will be arranged as an outpatient. MD SHELBY Pelaez/ROSI / [id number] MTDD
--- NOTE | 2023-09-03 11:19 | CONS_ITS ---
DATE OF SERVICE: 09/03/2023 REFERRING PHYSICIAN: Dr. Mcrae REASON FOR CONSULTATION: GI bleeding. HISTORY OF PRESENT ILLNESS: The patient is a pleasant 28-year-old man known to me from recent evaluation after he presented with upper GI bleeding. Endoscopy at that time showed some gastritis and no source for bleeding was identified. He was discharged on a proton pump inhibitor, but had recurrent melena and became lightheaded without hematemesis. He presented to the emergency room, where he was re-evaluated and laboratory studies were obtained showing a hematocrit of 18.3, down from 32 on August 31. He was admitted to the hospital and transfused 2 units of packed red blood cells because of a suspicion of underlying continued bleeding. He remained hemodynamically stable overnight. Hematocrit this morning after transfusion was improved to 22.3, up from 18.3. For details of past medical history, family history, social history, and review of systems, please see recent consultation and these are unchanged. CURRENT MEDICATIONS: His current medication list is reviewed in the chart. ALLERGIES: CEFACLOR. PHYSICAL EXAMINATION: GENERAL: Shows a pleasant male, lying comfortably in bed. VITAL SIGNS: Stable. SKIN: Anicteric. HEENT: Shows no scleral icterus. NECK: Without lymphadenopathy or thyromegaly. LUNGS: Clear. HEART: Shows regular rate and rhythm. S1, S2. No murmur. ABDOMEN: Soft without focal masses or tenderness. Bowel sounds are present. No organomegaly is noted. EXTREMITIES: Without edema. LABORATORY DATA AND PERTINENT STUDIES: Reviewed. IMPRESSION: Recurrent gastrointestinal bleeding. I have discussed with the patient that he could have a lesion that was not picked up on his 1st endoscopy and I recommended a repeat upper endoscopy. I have discussed risks and benefits of this with him. He understands and agrees to proceed. I agree with treating him supportively with IV proton pump inhibitors and transfusion as needed. Thanks for asking me to see him. I will follow him in the hospital with you. MD SHELBY Pelaez/ROSI / [id number] MTDD
[2023-09-03] MEDS: Acetaminophen 325 MG TABLET 650 MG PO (12:59)
--- NOTE | 2023-09-03 14:46 | MHC.CM.PN ---
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 He had procedure today. CM to follow and assist as needed with DC plan.
--- NOTE | 2023-09-03 16:09 | P.PNIM_ITS ---
Subjective Subjective Date of Service: 09/03/23 Interval History: No acute issues overnight notes of EGD reviewed. Patient tolerated procedure well Review of Systems Denies chest pain Denies shortness of breath Denies nausea vomiting diarrhea Denies fever chills Physical Exam 2 Vital Signs: Vital Signs: Last Vital Signs Temp 98.9 F 09/03/23 15:40 Pulse 93 09/03/23 15:40 Resp 20 09/03/23 15:40 BP 106/53 L 09/03/23 15:40 Pulse Ox 100 09/03/23 15:40 O2 Del Method Room Air 09/03/23 15:40 BMI result Body Mass Index 29.9 Const: Other: No acute issues Resp: Other: Clear to auscultation bilaterally no rales rhonchi or wheezes Cardio: Other: No S4; positive S1-S2; no S3 murmurs rubs or gallops GI: Other: Soft nontender nondistended normoactive bowel sounds Extrem: Other: No edema bilaterally Objective Data Active Medications Acetaminophen (Acetaminophen 325 Mg Tablet) 650 mg PO Q4H PRN PRN Reason: Pain, Mild (Pain Scale 1-3) Last Admin: 09/03/23 12:59 Dose: 650 mg Documented By: DELPHINE Fentanyl (Fentanyl Citrate/Pf 100 Mcg/2 Ml Vial) 50 mcg IVPUSH Q5M PRN; Protocol PRN Reason: Pain, Severe (Pain Scale 7-10) Pantoprazole Sodium (Pantoprazole Sodium 40 Mg/10 Ml Vial) 40 mg IVPUSH BID@0630,1630 [facility] Last Admin: 09/03/23 05:42 Dose: 40 mg Documented By: LAFLAMNat Sodium Chloride (0.9 % Sodium Chloride Flush 3 Ml Syringe) 3 ml IVFLUSH QSHIFT [facility] Last Admin: 09/03/23 08:18 Dose: 3 ml Documented By: DELPHINE Labs 09/03/23 08:17 09/03/23 08:17 Labs: Laboratory Results - last 24 hr 09/02/23 09/03/23 12:50 08:17 MCV 86.1 MCH 29.0 MCHC 33.6 RDW 14.0 Plt Count 224 MPV 10.1 Immature Gran % (Auto) 0.6 H Neut % (Auto) 61.2 Lymph % (Auto) 30.6 Williamson % (Auto) 6.1 Eos % (Auto) 0.8 Baso % (Auto) 0.7 Lymph # (Auto) 2.6 Williamson # (Auto) 0.5 Eos # (Auto) 0.1 Baso # (Auto) 0.1 Abs Immat Gran (auto) 0.05 H Absolute Neuts (auto) 5.1 Absolute Nucleated RBC 0.000 Nucleated RBC % (auto) 0.0 Smear Path Review SEE NOTE Anion Gap 9 L Estim Creat Clear Calc 110.8 Estimated GFR > 60 Fasting Glucose 89 Calcium 7.8 L Total Bilirubin 0.6 AST 24 ALT 13 Alkaline Phosphatase 35 L Total Protein 4.5 L Albumin 2.7 L Blood Type B Positive Antibody Screen NEGATIVE Crossmatch See Detail Assessment and Plan (1) Acute gastrointestinal bleeding: Status: Acute (2) Acute blood loss anemia: Status: Acute Plan 28 yo who was recently admitted for UGI and underwent EGD which revealed mild gastritis. He now returns 2 days after discharge with symptomatic anemia and melena. He will be admitted for futher work up. 1. Acute GI bleed.. Results of EGD reviewed with Dr. Koch -Protonix 40 mg b.i.d. -advance diet as tolerated -outpatient follow-up with Dr. Koch 2. Acute blood loss anemia -good response to transfusion -follow CBC in a.m. Requires ongoing hospitalization to observe overnight for recurrent GI bleed and follow CBC in a.m. Quality Stroke Does the patient have a stroke diagnosis?: No VTE Prior VTE?: No VTE Risk Level:: Medical - moderate - high VTE Device Contraindication: N/A - Device Ordered VTE Drug Contraindication: Treatment Not Indicated
[2023-09-04 04:00] VITALS: BP 88/51; PULSE 79; RESP 16; TEMP 36.4; O2SAT 100
[2023-09-04 04:35] VITALS: BP 112/58
[2023-09-04] MEDS: Pantoprazole Sodium 40 MG/10 ML VIAL IVPUSH (06:38)
[2023-09-04 07:51] VITALS: BP 92/68; PULSE 93; RESP 20; TEMP 36.8; O2SAT 98
[2023-09-04 08:36] VITALS: O2SAT 98
--- NOTE | 2023-09-04 11:15 | HO.POSTANES ---
Post Anesthesia Evaluation Post Anesthesia Evaluation Date of Service: 09/03/23 Vital Signs: Vital Signs Temp Pulse Resp BP Pulse Ox O2 Del Method 09/04/23 08:36 98 Room Air 09/04/23 07:51 98.2 F 93 20 92/68 98 Room Air 09/04/23 04:35 112/58 L 09/04/23 04:00 97.5 F 79 16 88/51 L 100 Room Air 09/03/23 23:39 99.3 F 93 16 117/57 L 99 Room Air Anesthesia: Monitored Mental Status: Awake Pain Control: Satisfactory Nausea/Vomiting: None Hydration: Adequate Anesthesia-Related Issues: No Anes. Related Issues
[2023-09-04 11:26] VITALS: BP 121/68; PULSE 92; RESP 20; TEMP 37.1; O2SAT 97
--- NOTE | 2023-09-04 11:34 | PM.DS ---
DS: Providers Provider Date of Service: 09/04/23 Date of admission: 09/02/23 14:24 Date of discharge: 09/04/23 Primary care physician: CRISTÓBAL Harris Consults: 09/02/23 14:23 Consult to Gastroenterology Routine Consulting Provider: Raj Koch Reason for consultation: upper GI bleed, known to you from recent EGD DS: Diagnosis Discharge Diagnosis (1) Acute gastrointestinal bleeding: Status: Acute (2) Acute blood loss anemia: Status: Acute DS: Summary Hospital Course Hospital Course: 28 year old male who [place] [facility] for abdominal pain and underwent an upper EGD which revealed mild gastritis. He was discharged on oral PPI. He now returns 2 days after discharge with melena with associated signs of anemia including palpitations, dizziness, lightheadedness, fatigue. The patient endorses that since discharge, he was initially almost back to baseline. He was tolerating a diet, did not have abdominal pain and his stools were returning to their normal color. However, it appears over the next 24 hours, his symptoms began again. He reports on going melena. Denies bright red blood per rectum. Reports nausea but denies vomiting of any type. Reports vague abdominal discomfort. Patients H/H which was 10.7/32.3 on 08/31/23 has decreased to 6.1/18.3 today.Denies heavy EtOH or NSAID use. In the ED, patient with borderline BP. He has been given 2L IVF with plans to transfuse 2 units PRBCs. He will be given IV PPI and will be admitted for the treatment of suspected UGB Hospital Course Patient admitted to telemetry and transfuse 2 units of packed red cells. Seen in consultation by GI on 09/03/2023, underwent EGD; findings consistent with a 10 mm gastric ulcer on lesser curvature no bleeding that was treated with epi and gold probe. Patient tolerated advancement of diet overnight and at this point is medically acceptable for discharge. He will be sent home on omeprazole 40 mg twice daily and can follow-up with Dr. Koch in the office Time Attestation Discharge coordination time: Greater than 30 minutes Quality: Safe Use of Opioids Does Pt have an Active Cancer Diagnosis on the Problem List?: No Quality: Stroke Does the patient have a stroke diagnosis?: No Physical Exam Vital Signs: Vital Signs: Last Vital Signs Temp 98.7 F 09/04/23 11:26 Pulse 92 09/04/23 11:26 Resp 20 09/04/23 11:26 BP 121/68 09/04/23 11:26 Pulse Ox 97 09/04/23 11:26 O2 Del Method Room Air 09/04/23 11:26 BMI result Body Mass Index 29.9 Const: Other: No acute issues Resp: Other: Clear to auscultation bilaterally no rales rhonchi or wheezes Cardio: Other: No S4; positive S1-S2; no S3 murmurs rubs or gallops GI: Other: Soft nontender nondistended normoactive bowel sounds Extrem: Other: No edema bilaterally DS: Data Data Completed and Pending Completed studies during hospitalization [Text1]: Procedures Excision of Stomach, Pylorus, Via Natural or Artificial Opening Endoscopic, Diagnostic (08/30/23) Labs on day of discharge: Laboratory Results - last 24 hr 09/02/23 12:50 Smear Path Review SEE NOTE Discharge Plan Discharge Anticipated Discharge Date/Time: 09/04/23 11:27 Patient Disposition: Home, Self-Care Discharge Diagnosis: Gastric lesion Referrals: Renay Fernandez PA [Primary Care Provider] - 1 Week Discharge Medications: New omeprazole 40 mg capsule,delayed release(DR/EC) 40 mg PO BID Qty: 60 2RF Continued Claritin-D 12 Hour 5-120 mg Tablet Extended Release 12 Hr 1 tab PO DAILY PRN (Reason: Allergy Symptoms) Discontinued omeprazole magnesium [Prilosec OTC] 20 mg tablet,delayed release (DR/EC) 20 mg PO DAILY Qty: 90 0RF Discharge Orders: Discharge Order (Routine); Ordered 09/04/23 Ordered By: Chriss Tejeda Diet: Advance to usual diet Activity on Discharge: As tolerated Stand Alone Forms: Patient Portal Discharge page, Work/School Release Care Plan Goals: Continue all meds as taken before hospital Health Concerns: Start omeprazole [address] Koch who has already sent in his prescription you may disregard my Plan of Treatment: Returned to work as scheduled 09/07/2023 Assessment: See discharge summary
--- NOTE | 2023-09-04 11:39 | MHC.CM.PN ---
PT TO DC HOME TODAY WITH NO SERVICES VIA PRIVATE TRANSPORT
== END 2023-09-04 13:45 | disposition home or self-care (01) | DRG 241 ==
LOC: HO.ED 13:08 → HO.EDOVER 16:16 → HO.IMC 19:32
PROVIDERS: Internal Medicine Gastroenterology; Physician Assistant Medical; Admitting Provider Family Medicine; Emergency Provider Emergency Medicine; PCP Physician Assistant; Visit Provider Hospitalist
PROC: 3E0G8GC Introduction of Other Therapeutic Substance into Upper GI, Via Natural or Artificial Opening Endoscopic (ICD-10-PCS; principal; 2023-09-03 10:50)
DX: K25.4 Chronic or unspecified gastric ulcer with hemorrhage (principal); I95.9 Hypotension, unspecified; D62 Acute posthemorrhagic anemia
CPT/HCPCS: 36415; 80048; 80053; 80076; 82272; 83540; 84484; 85014; 85018; 85025; 85610; 86850; 86900; 86901; 86923; 93005; 99285; C9113; J0171; J2704; P9016

== ENCOUNTER → 2023-09-02 12:10 | Outpatient (BNV) | payer OTHER, SELFPAY | PROVIDERS: Admitting Provider Family Medicine; Emergency Provider Emergency Medicine; PCP Physician Assistant; Visit Provider Internal Medicine Cardiovascular Disease | DX: R00.0 Tachycardia, unspecified (principal) | CPT/HCPCS: 93010 ==

== ENCOUNTER → 2023-09-02 12:56 | Outpatient (BNV) | payer OTHER, SELFPAY | PROVIDERS: Emergency Provider Emergency Medicine; PCP Physician Assistant; Visit Provider Family Medicine | DX: K92.2 Gastrointestinal hemorrhage, unspecified (principal); D62 Acute posthemorrhagic anemia | CPT/HCPCS: 99223; 99233; 99238 ==

== ENCOUNTER 2023-11-12 06:00 | Day surgery (SDC) | payer OTHER, SELFPAY ==
--- NOTE | 2023-11-10 10:53 | P.CONAN_ITS ---
Documented by User: Hedy Mejia NP 11/10/23 10:54 HPI - Anesthesia Eval Consult details Narrative: 28yo M for Upper Endoscopy [facility] admit 08/2023 Hospital course: Patient admitted to telemetry and transfuse 2 units of packed red cells. Seen in consultation by GI on 09/03/2023, underwent EGD; findings consistent with a 10 mm gastric ulcer on lesser curvature no bleeding that was treated with epi and gold probe. Patient tolerated advancement of diet overnight and at this point is medically acceptable for discharge. He will be sent home on omeprazole 40 mg twice daily and can follow-up with Dr. Koch in the office s/p EGD 08/2023 with MARJORIE EDOUARD Active Problems Active Problems: All Active Problems Upper gastrointestinal hemorrhage (Acute) Past Medical History Medical History Bleeding ulcer Upper GI hemorrhage Family History Family history of problems with anesthesia: No Surgical History Surgical History History of endoscopy History of Problems with Anesthesia: No Social History Social History Housing: Apartment Do you presently have visiting nurse or other home services: No Patient Tobacco Use Status: Never used Tobacco Substance Use Type: Caffiene Are you DNR?: No Advance Directives: No Advance Directives Information Provided: Yes Recently lost weight without trying: No Nutrition Risks: No Nutritional Risk service: No Meds Allergies Allergy/AdvReac Type Severity Reaction Status Date / Time cefaclor [From [facility]] Allergy Severe Rash Verified 09/03/23 09:31 Home Medications ?Medication ?Instructions ?Recorded ?Confirmed ?Last Taken ?Type loratadine 5 mg-pseudoephedrine ER 1 tab PO DAILY PRN Allergy Symptoms 08/31/23 09/03/23 11/12/23 History 120 mg tablet,extended release,12hr (Claritin-D 12 Hour) Exam Pertinent Lab Results Pertinent Lab Results: Laboratory Tests 09/03/23 08:17 Sodium 140 Potassium 3.8 Chloride 111 H Carbon Dioxide 24 BUN 26 H Creatinine 1.00 Assessment and Plan Assessment Anesthesia Assessment: Chart Reviewed Final Anesthetic Review Family History of Problems with Anesthesia: No History of Problems with Anesthesia: No Documented by User: Tamy Leiva MD 11/12/23 07:54 PMFSH Past Medical History Medical History Bleeding ulcer Upper GI hemorrhage Surgical History Surgical History History of endoscopy Social History Social History Housing: Apartment Do you presently have visiting nurse or other home services: No Patient Tobacco Use Status: Never used Tobacco Substance Use Type: Caffiene Are you DNR?: No Advance Directives: No Advance Directives Information Provided: Yes Recently lost weight without trying: No Nutrition Risks: No Nutritional Risk service: No Meds Allergies Allergy/AdvReac Type Severity Reaction Status Date / Time cefaclor [From [facility] Allergy Severe Rash Verified 09/03/23 09:31 Home Medications ?Medication ?Instructions ?Recorded ?Confirmed ?Last Taken ?Type loratadine 5 mg-pseudoephedrine ER 1 tab PO DAILY PRN Allergy Symptoms 08/31/23 09/03/23 11/12/23 History 120 mg tablet,extended release,12hr (Claritin-D 12 Hour) Exam Airway Mallampati Class: II TM Dist: >3cm Neck ROM: Full Heart: rrr Lungs: cta Assessment and Plan Final Anesthetic Review NPO: Yes ASA Class: II Final Preanesthetic Review: No Changes in Pt Med Stat, Meds/Allgs Chart Reviewed, Consent Obtained/Reviewed and Anes Risks/Benef Reviewed Patient Risk: Low Procedure Risk: Low Anesthetic Plan Anesthetic Plan: MAC: Disposition: Standard PACU
[2023-11-12 06:33] VITALS: BP 123/88; PULSE 84; RESP 18; TEMP 36.3; O2SAT 99; BMI 29.2
[2023-11-12 06:41] LABS: Hematocrit 39.2 % (42.0-52.0); Mean Corpuscular HGB Conc 30.6 g/dl (31.0-36.0); Mean Corpuscular Hemoglobin 22.9 pg (27.0-33.0); Mean Platelet Volume 9.7 fL (9.4-12.4); Platelet Count 414 X10*3/uL (160-400); Red Blood Count 5.23 X10*6/uL (4.60-5.80); Red Cell Distribution Width 16.4 % (11.0-16.0); White Blood Count 8.9 X10*3/uL (4.8-10.8)
[2023-11-12] MEDS: Lactated Ringers 1,000 ML 100 ML IVCONT (06:49)
--- NOTE | 2023-11-12 07:34 | MHC.SHP ---
Pre-Procedural Eval Section A - 24 Hr Update-Section A only Date of Service: 11/12/23 Section B - Complete if H&P > 30 days Chief Complaint: Acute gastric ulcer with hemorrhage Details of Present Illness: see Consult no changes Relevant Family History (Specify if Yes): No Relevant Social History: None Present Medications: see Short Stay Collaborative assessment Medical History: No relevant PMH Allergies: Allergies Allergy/AdvReac Type Severity Reaction Status Date / Time cefaclor [From Ceclor] Allergy Severe Rash Verified 09/03/23 09:31 Review of Systems Sugical H&P ROS: Negative: Constitution, Cardiovascular, Respiratory, Neurological, Psychiatric, Hem-Onc, Allergic/Immunologic, Gastrointestinal, Genitourinary, Musculoskeletal, Integumentary, Endocrine and Eyes/Ears/Nose/Throat Exam Surgical H&P Exam: Normal: HEENT, Normal: Heart, Normal: Lungs, Normal: Extremities, Normal: Abdomen, Normal: Skin and Normal: Neurological Plan Diagnosis/Plan: Unchanged I have reviewed the history and physical and performed a pertinent physical examination on my patient. No changes have occurred unless specified. Time Spent With Patient Time: Total time managing care of this patient today ____ minutes.
[2023-11-12 08:05] VITALS: BP 118/55; PULSE 86; RESP 17; TEMP 36.1; O2SAT 99
--- NOTE | 2023-11-12 08:05 | P.BOP_ITS ---
Brief Operative Note Date of Service: 11/12/23 Pre-op diagnosis: gastric ulcer Post-op diagnosis: same Procedure: egd Surgeon: Raj Koch MD Anesthesia: MAC Was an Mysql Database Administrator used for this Procedure?: No Estimated blood loss (mL): 2 Pathology: other Condition: stable Disposition: PACU
[2023-11-12 08:20] VITALS: BP 115/58; PULSE 84; RESP 17; O2SAT 99
[2023-11-12 08:29] VITALS: BP 129/86; PULSE 77; RESP 17; TEMP 36.3; O2SAT 99
--- NOTE | 2023-11-15 09:46 | OP_ITS ---
DATE OF SERVICE: 11/12/2023 SURGEON: Raj Koch MD INDICATIONS: Gastric ulcer with previous GI bleed. PREOPERATIVE DIAGNOSIS: POSTOPERATIVE DIAGNOSIS: PROCEDURE PERFORMED: Upper endoscopy with biopsy. ESTIMATED BLOOD LOSS: COMPLICATIONS: ANESTHESIA: Monitored anesthesia care. ASSISTANTS: SPECIMENS: DESCRIPTION OF PROCEDURE: A history and physical performed. The risks and benefits of the procedure were explained to the patient. Informed consent was obtained. The patient was placed in the left lateral decubitus position. The Olympus video gastroscope was introduced into the esophagus, stomach, and duodenum. Examination was performed. The scope was removed. He tolerated the procedure well was returned to the recovery area in stable condition. FINDINGS: Esophagus: The esophagus was normal. There was no esophagitis. Biopsies were obtained from the EG junction. Stomach: Stomach showed no evidence of active GI bleeding. The previously noted gastric ulcer appeared healed. The mucosa was normal. Biopsies were obtained from the antrum. Duodenum: The bulb and 2nd portion were normal. IMPRESSION: 1. Gastric ulcer, healed. RECOMMENDATION: Follow up the biopsy results. MD SHELBY Pelaez/ROSI / [id number]
== END 2023-11-12 08:50 | disposition home or self-care (01) ==
PROVIDERS: Nurse Practitioner; PCP Physician Assistant; Visit Provider Internal Medicine Gastroenterology
PROC: 0DJ08ZZ Inspection of Upper Intestinal Tract, Via Natural or Artificial Opening Endoscopic (ICD-10-PCS; CPT 43235; principal; 2023-11-12 07:30)
DX: Z87.19 Personal history of other diseases of the digestive system (principal)
CPT/HCPCS: 43239; 36415; 85027; 88305; 88313; 88342; J2250; J2704